=== PATIENT | male | born 1940 | race Caucasian/White ===

== ENCOUNTER → 2017-12-30 10:49 | Outpatient (CLI) | payer MEDICARE, SELFPAY ==
--- NOTE | 2017-12-30 | DI.RAD.S_ITS ---
PROCEDURE: XR CHEST 2V INDICATIONS: ACUTE ON CHRONIC SYSTOLIC CHF TECHNIQUE: 2 views of the chest were acquired. COMPARISON: [facility], , CHEST 2 VIEW, 04/09/2017, 8:46. [facility], , CHEST 2 VIEW, 10/21/2016, 10:46. [facility], , CHEST 1 VIEW, 09/20/2016, 6:47. FINDINGS: Surgical changes and devices: Pacemaking device and dual chamber leads normal. Lungs and pleura: No pleural effusions or pneumothorax. Lungs are abnormal, with a right upper lobe pneumonia pattern. Mediastinum: Mediastinal contours are normal. Heart size is normal. Bones and chest wall: No suspicious bony abnormalities. Soft tissues appear unremarkable. IMPRESSION: Right upper lobe pneumonia, cardiac pacemaking device and dual chamber leads normal. Dictated by: Arjun Fisher M.D. on 12/30/2017 at 11:39 Approved by: Arjun Fisher M.D. on 12/30/2017 at 11:40
[2017-12-30 12:03] LABS: Alanine Aminotransferase 48 IU/L (21-72); Albumin 4.1 g/dL (3.5-5.0); Albumin Globulin Ratio 1.5 (1.0-2.8); Alkaline Phosphatase 59 U/L (38-126); Aspartate Aminotransferase 31 IU/L (17-59); BUN Creatinine Ratio 17.8 (6-22); Bilirubin Total 1.7 mg/dL (0.2-1.3); Creatine Kinase 115 U/L (55-170); Estimated Glomerular Filt Rate > 60.0 mL/min (>60); Globulin 2.8 g/dL (1.7-4.1); Glucose 91 mg/dL (80-110); HEMOLYSIS < 15 (0-50); Magnesium 2.1 mg/dL (1.6-2.3); Sodium 142 mmol/L (137-145); Total Protein 6.9 g/dL (6.3-8.2)
[2017-12-30 12:09] LABS: Add Manual Diff / Slide Review NO; Basophils Percent Auto 0.8 % (0-2); Eosinophils Percent Auto 7.4 % (2-4); Hematocrit 39.6 % (41-53); Hemoglobin 13.7 g/dL (13.5-17.5); Mean Corpuscular HGB Conc 34.6 % (30-36); Mean Corpuscular Volume 92.4 fL (80-100); Monocytes Percent Auto 12.8 % (3-14); Neutrophils Absolute Auto 4900 /uL (3000-5900); Platelet Count 186 X10^3/uL (150-400); Red Blood Cell Count 4.29 X10^6/uL (4.5-5.9); Red Cell Distribution Width 13.9 % (11.6-14.8); White Blood Cell Count 7.3 X10^3/uL (4.5-11.0)
[2017-12-30 12:20] LABS: Troponin I < 0.012 ng/mL (0.01-0.034)
== END ==
PROVIDERS: PCP Family Medicine; Visit Provider Internal Medicine Cardiovascular Disease
DX: I50.23 Acute on chronic systolic (congestive) heart failure (principal); J18.9 Pneumonia, unspecified organism; Z95.0 Presence of cardiac pacemaker
CPT/HCPCS: 36415; 71046; 80053; 82550; 83735; 84484; 85025

== ENCOUNTER → 2017-12-31 09:30 | Outpatient (CLI) | payer MEDICARE, SELFPAY ==
--- NOTE | 2017-12-31 11:54 | DI.ECHO.S_ITS ---
[facility] +---------+ : : [address] : : : [place], [place] : : : : [id number] : : : : Phone: [phone]+ Echocardiogram Report + + :Name: VIVIAN MOSQUEDA Study Date: 12/31/2017 Height: 72 in : :[facility] Exam Location: [facility] Weight: 224 lb : : Gender: Male BSA: 2.2 m2 : :: 1940 Age: 77 yrs BP: 120/80 mmHg: :Reason For Study: Left ventricle dysfunction : :Ordering Physician: Scott : :[place] Performed By: Gabbie Page : + + Interpretation Summary The left ventricle is normal in size. The ejection fraction is estimated to be 60-65%. Compared to the prior exam, the left ventricular function is improved. The right ventricle is mildly dilated. There is a pacemaker lead in the right ventricle. Right ventricular systolic function is mildly reduced. There is mild to moderate mitral regurgitation. Compared to the prior echo study, there has been no change in the severity of mitral regurgitation. The left and non coronary cusps are mildly calcified with mildly reduced mobility. There is mild to moderate aortic regurgitation. Compared to the prior echo study, there has been no change in the severity of aortic regurgitation. The ascending aorta is mildly enlarged. The IVC is dilated (diameter is greater than 2.1 cm) yet it collapses greater than 50% with a sniff. This suggests a right atrial pressure of 8 mm Hg. Procedure: A two-dimensional transthoracic echocardiogram with color flow and Doppler was performed. The study quality was technically adequate. Comparison is made with the echocardiogram of 09/20/16. The patient has a paced rhythm. Left Ventricle: The left ventricle is normal in size. Proximal septal thickening is noted. There is no echo evidence for significant left ventricular outflow tract obstruction. The ejection fraction is estimated to be 60-65%. Compared to the prior exam, the left ventricular function is improved. There is apical septal wall hypokinesis. Compared to the prior exam, the apical wall motion abnormality is improved. E/E' med: 7.1. Right Ventricle: The right ventricle is mildly dilated. There is a pacemaker lead in the right ventricle. Right ventricular systolic function is mildly reduced. TAPSE: 1.5 cm. Atria: The left atrium is severely dilated. The left atrium has remained unchanged in size since the prior echo exam. The right atrium is moderate to severely dilated. The right atrium has remained unchanged in size since the prior echo exam. There is no Doppler evidence for an interatrial shunt. Mitral Valve: The mitral valve leaflets are mildly calcified. There is mild mitral annular calcification. There is mild to moderate mitral regurgitation. Compared to the prior echo study, there has been no change in the severity of mitral regurgitation. Aortic Valve: The aortic valve is trileaflet. The left and non coronary cusps are mildly calcified with mildly reduced mobility. There is no hemodynamically significant valvular aortic stenosis. There is mild to moderate aortic regurgitation. Compared to the prior echo study, there has been no change in the severity of aortic regurgitation. Tricuspid Valve: The tricuspid valve is normal in structure and function. Pulmonary artery pressures cannot be estimated because of the lack of a measurable TR jet velocity. There is trace tricuspid regurgitation. Pulmonic Valve: The pulmonic valve is not well visualized. There is trace pulmonic regurgitation. Great Vessels: The aortic root is normal size. The ascending aorta is mildly enlarged. The aortic arch could not be visualized. The pulmonary artery is not well visualized, but is probably normal size. The IVC is dilated (diameter is greater than 2.1 cm) yet it collapses greater than 50% with a sniff. This suggests a right atrial pressure of 8 mm Hg. Pericardium/ Pleura There is no pericardial effusion. There is no pleural effusion. MMode/2D Measurements & Calculations LVIDd: 4.7 cm LVOT diam: 2.4 cm LVIDs: 3.2 cm Ao root diam: 3.7 cm FS: 32.8 % asc Aorta Diam: 3.6 cm EPSS: 0.30 cm IVSd: 1.1 cm LVPWd: 0.87 cm LV green. diameter/BSA (cm/m^2): 2.1 LV sys. diameter/BSA (cm/m^2): 1.4 LA A2 area: 41.4 cm2 RA long axis: 7.0 cm LA A4 area: 37.6 cm2 RA area: 27.9 cm2 LA length (vol): 7.1 cm RA vol: 94.6 ml LA vol: 186.1 ml RA : 42.3 ml/m2 LA vol index: 83.2 ml/m2 IVC diam: 2.2 cm RVD1 (basal): 4.7 cm TAPSE: 1.5 cm Doppler Measurements & Calculations Ao V2 max: 127.1 cm/sec LVOT Max Lexa: 83.7 cm/sec Ao V2 mean: 97.1 cm/sec LV V1 max P.8 mmHg Ao max P.5 mmHg LV V1 VTI: 16.6 cm Ao mean P.1 mmHg ALNIA(I,D): 3.3 cm2 Ao V2 VTI: 22.6 cm ALINA(V,D): 2.9 cm2 sev ratio: 0.74 ALINA indexed to BSA (cm^2/m^2): 1.5 AI P1/2t: 491.6 msec AI dec slope: 234.8 cm/sec2 MV E max lexa: 60.0 cm/sec PA V2 max: 56.0 cm/sec Med Peak E' Lexa: 8.4 cm/sec PA V2 mean: 38.9 cm/sec E/E' med: 7.1 PA mean P.68 mmHg Lat Peak E' Lexa: 13.2 cm/sec PA Accel Time: 0.05 sec E/E' lat: 4.5 E/e' average: 5.8 MV P1/2t: 46.9 msec MV P1/2t max lexa: 61.4 cm/sec MVA(P1/2t): 4.7 cm2 Reading Physician:PM
== END ==
PROVIDERS: Family Provider Family Medicine; PCP Family Medicine; Visit Provider Internal Medicine Cardiovascular Disease
DX: I51.9 Heart disease, unspecified (principal)
CPT/HCPCS: 93306

== ENCOUNTER → 2018-01-08 07:43 | Outpatient (CLI) | payer MEDICARE, SELFPAY ==
[2018-01-08 08:38] LABS: INR 1.1 (0.9-1.3); Prothrombin Time 11.5 SECONDS (10.1-12.7)
[2018-01-08 08:40] LABS: Platelet Count 248 X10^3/uL (150-400)
== END ==
PROVIDERS: PCP Family Medicine; Visit Provider Anesthesiology Pain Medicine
DX: Z79.01 Long term (current) use of anticoagulants (principal)
CPT/HCPCS: 36415; 85049; 85610

== ENCOUNTER 2018-01-09 08:02 | Outpatient (CLI) | payer MEDICARE, SELFPAY ==
[2018-01-09] VITALS (8 sets, daily range): BP systolic 97–128; BP diastolic 62–81; PULSE 79–82; RESP 15–20; TEMP 35.9–36.4; O2SAT 94–98; BMI 30.1
--- NOTE | 2018-01-09 | DI.CT.S_ITS ---
PROCEDURE: CT LUMBAR SPINE W CON INDICATIONS: MYELOGRAM SPINE LUMBOSACRAL TECHNIQUE: After the intrathecal administration of 15 mL intrathecal contrast, 3 mm thick sections acquired from T12 to the sacrum. Sagittal and coronal reformats were then constructed. For radiation dose reduction, the following was used: automated exposure control. COMPARISON: [facility], , L-SPINE WITHOUT CONTRAST, 09/15/2015, 10:44. FINDINGS: Image quality: Excellent. Bones: Spinal alignment is normal. No spondylolysis or spondylolisthesis. No suspicious bony lesions. No acute fractures. Mild reactive sclerosis at the endplates of L4-5. Soft tissues: No retroperitoneal masses. Visualized aorta demonstrates atheromatous calcifications with normal caliber. The cord terminates at the L1 level. T12-L1: Normal appearance. L1-L2: Mild disc narrowing and annular bulge with mild central canal stenosis. L2-L3: Disc degeneration with broad-based annular bulge/osseous ridge creates mild central canal stenosis, central diameter of the thecal sac at 9.2 mm. L3-L4: Disc degeneration with small central protrusion superimposed on broad-based annular bulge/osseous ridge, bilateral facet arthropathy with ligamentous thickening, creates moderate central canal stenosis, sagittal diameter of the thecal sac at 6.6 mm. There is osseous hypertrophy in the left posterolateral vertebral body, causing mild left foraminal stenosis. L4-L5: Disc degeneration with small right central protrusion superimposed on broad-based annular bulge/osseous ridge and bilateral facet arthropathy with ligamentous thickening. There is mild central canal stenosis, thecal sac at 9.1 mm. L5-S1: Mild disc degeneration and broad based annular bulge. Bilateral facet arthropathy. The disc bulge slightly indents the thecal sac anteriorly with no apparent displacement or deformity of the S1 nerve roots. No apparent foraminal stenosis. Miscellaneous: Nerve roots appear unremarkable throughout. No nerve root clumping to suggest arachnoiditis. IMPRESSION: 1. Multilevel degenerative disc disease and facet arthropathy. 2. Spinal stenosis is moderately severe and most marked at the L3-4 level. Mild central canal stenosis is present at L2-3 and L4-5. 3. Hypertrophic changes appear to cause mild left foraminal stenosis at the L3-4 level. Assessment of foraminal stenosis by MRI imaging is preferred. Dictated by: Frank Moreno M.D. on 01/09/2018 at 10:02 Approved by: Frank Moreno M.D. on 01/09/2018 at 10:24
--- NOTE | 2018-01-09 09:57 | PC.NURSE ---
pt tolerated Lumbosacral CT Myelogram without difficulty and did not receive any sedation. Dr. Moreno performed procedure. Gave report to Juanita in PACU after pt finished with procedure and CT scan post injection. Pt alert and oriented the entire time. and needs were met.
== END 2018-01-09 12:10 ==
PROVIDERS: Family Provider Family Medicine; PCP Family Medicine; Visit Provider Anesthesiology Pain Medicine
DX: M54.16 Radiculopathy, lumbar region (principal); G62.9 Polyneuropathy, unspecified; R53.1 Weakness; G47.01 Insomnia due to medical condition; M79.661 Pain in right lower leg; Z95.0 Presence of cardiac pacemaker; Z87.891 Personal history of nicotine dependence; M48.061 Spinal stenosis, lumbar region without neurogenic claudication; M51.36 Other intervertebral disc degeneration, lumbar region
CPT/HCPCS: 62270; 72132; 76000

== ENCOUNTER → 2018-05-20 08:04 | Outpatient (CLI) | payer MEDICARE, SELFPAY ==
[2018-05-20 08:58] LABS: BUN Creatinine Ratio 14.5 (6-22); Blood Urea Nitrogen 16 mg/dL (9-20); Calcium 9.4 mg/dL (8.4-10.2); Carbon Dioxide 31 mmol/L (22-32); Chloride 105 mmol/L (98-107); Estimated Glomerular Filt Rate > 60.0 mL/min (>60); Glucose 105 mg/dL (80-110); HEMOLYSIS < 15 (0-50); Magnesium 2.3 mg/dL (1.6-2.3); Sodium 143 mmol/L (137-145)
[2018-05-20 09:04] LABS: Potassium 5.8 mmol/L (3.4-5.1)
[2018-05-20 09:27] LABS: Thyroid Stimulating Hormone 3.64 uIU/mL (0.47-4.68)
== END ==
PROVIDERS: Family Provider Family Medicine; PCP Family Medicine; Visit Provider Internal Medicine Cardiovascular Disease
DX: I47.2 Ventricular tachycardia (principal); I48.0 Paroxysmal atrial fibrillation; Z79.899 Other long term (current) drug therapy
CPT/HCPCS: 36415; 80048; 83735; 84443

== ENCOUNTER → 2018-05-21 07:51 | Outpatient (CLI) | payer MEDICARE, SELFPAY ==
[2018-05-21 09:41] LABS: Blood Urea Nitrogen 20 mg/dL (9-20); Carbon Dioxide 29 mmol/L (22-32); Chloride 106 mmol/L (98-107); Estimated Glomerular Filt Rate > 60.0 mL/min (>60); Glucose 109 mg/dL (80-110); HEMOLYSIS 15 (0-50); Potassium 4.1 mmol/L (3.4-5.1); Sodium 145 mmol/L (137-145)
== END ==
PROVIDERS: Family Provider Family Medicine; PCP Family Medicine; Visit Provider Internal Medicine Cardiovascular Disease
DX: E87.5 Hyperkalemia (principal)
CPT/HCPCS: 36415; 80048

== ENCOUNTER → 2018-07-07 13:42 | Outpatient (CLI) | payer MEDICARE, SELFPAY ==
[2018-07-07 14:30] LABS: BUN Creatinine Ratio 16.2 (6-22); Blood Urea Nitrogen 21 mg/dL (9-20); Calcium 9.1 mg/dL (8.4-10.2); Carbon Dioxide 28 mmol/L (22-32); Chloride 100 mmol/L (98-107); Estimated Glomerular Filt Rate 53.4 mL/min (>60); Glucose 80 mg/dL (80-110); HEMOLYSIS < 15 (0-50); Potassium 4.8 mmol/L (3.4-5.1); Sodium 144 mmol/L (137-145)
== END ==
PROVIDERS: Family Provider Family Medicine; PCP Family Medicine; Visit Provider Internal Medicine Cardiovascular Disease
DX: I25.10 Atherosclerotic heart disease of native coronary artery without angina pectoris (principal)
CPT/HCPCS: 36415; 80048

== ENCOUNTER → 2018-07-10 08:22 | Outpatient (CLI) | payer MEDICARE, SELFPAY | PROVIDERS: Family Provider Family Medicine; PCP Family Medicine; Visit Provider Physician Assistant | DX: N39.0 Urinary tract infection, site not specified (principal) | CPT/HCPCS: 87077; 87086; 87186 ==

== ENCOUNTER 2018-08-26 07:57 | Day surgery (SDC) | payer MEDICARE, SELFPAY ==
--- NOTE | 2018-08-25 17:05 | PM.PREOP ---
Pre-operative Note Interval Note History & Physical reviewed/Exam performed by Physician: Yes Changes to H&P: No
--- NOTE | 2018-08-26 07:47 | P.OP_ITS ---
Operative Date/Time/Diagnoses Date of procedure: 08/26/18 Time of procedure: 08:45 Procedure & Clinicians Procedure: Preoperative diagnoses: 1. Left nuclear sclerotic cataract 2. Astigmatism which is to be corrected with a toric intraocular lens implant. 3. Pacemaker Postoperative diagnoses: 1. Cataract removal left eye with phacoemulsification with toric posterior chamber intraocular lens implant placed. Procedure: Phacoemulsification with posterior chamber toric intraocular lens implant. Surgeon: Kathia Sanchez MD Complications: None Specimen: None Implant:[id number] +20.0 [place] 175 Blood loss: None Anesthesia: Retrobulbar with monitored standby Description of procedure: Patient presents with a complaint of decreased vision due to cataract which is affecting activities of daily living. The patient wants surgery to improve vision and astigmatism. The patient was taken to the operating room and proparacaine drops placed. Indelible ink alvarado were placed at the 90 and 180 degree meridian. The patient was placed on the operating room table and given IV sedation. A retrobulbar block insert consisting of 6 cc of 2% xylocaine without epinephrine mixed half and half with 0.5% Marcaine with 1 cc of hyaluronidase added is placed between the medial and lateral 1/3 of the inferior orbital rim. Lid akinesia is obtain with 1% xylocaine with epinephrine infiltrated along the lid margin. The eye is manually massaged for 30 sec, prepped using Betadine solution, and draped in the usual sterile fashion. Temporal approach was made, a 1 mm side-port incision was made 90? from the proposed corneal wound. Phenylephrine 1.5% mixed with 1% xylocaine 0.2 cc was placed into the anterior chamber. Viscoat followed by Leoncio was then placed. A 2.6 mm clear incision with a 2.6 mm blade was placed at the 180 degree meridian. A 360 degree capsulorrhexis style capsulotomy was then performed with a cystitome needle on a Healon. Hydrodelineation and hydrodissection were performed. The phacoemulsification unit is introduced, and sculpting notice used to groove the central lens. It is then removed in chopping mode. Epi nucleus is removed with epinuclear mode and irrigation aspiration was used to remove the peripheral cortex. The posterior capsule is polished. The intraocular lens is selected, inspected, power confirmed, and placed in the posterior chamber at the desired meridian of 175 degrees.. The pupil was not constricted. The wound was stromally hydrated and tested for leaks, there was none and it was left sutureless. Vigamox 0.1 cc was placed into the anterior chamber. Kenalog 0.2 cc was placed in the superior subconjunctival space. A drop of antibiotic and was placed and the eye was patched and shielded. The patient was stable and returned to the recovery room in excellent condition. Dictated by: Kathia Sanchez MD Copy to: [facility]
[2018-08-26] MEDS: PROPARACAINE 0.5% OPHTH SOL 2 DROPS EYE-OP (08:15)
[2018-08-26] MEDS: CATARACT EYE COMPOUND (10 DROPS/SYRINGE) 3 DROPS EYE-OP (08:15)
[2018-08-26 08:16] VITALS: BP 153/79; PULSE 69; RESP 16; TEMP 36.4; O2SAT 94; BMI 30.5
--- NOTE | 2018-08-26 08:58 | SUR.OPER ---
Supine on eye stretcher, head on extension cradle secured with tape. Arms tucked at sides with blanket. Pillow under knees.
[2018-08-26] MEDS: PHENYLEPHRINE/LIDOCAINE VIAL (OR) 0.2 ML EYE-OP (09:00)
[2018-08-26] MEDS: MOXIFLOXACIN OPHTH DROPS 3 ML BOTTLE 2 DROPS INJ (09:01)
[2018-08-26] MEDS: CHONDROIDTIN/SOD HYALURONATE 1.05 ML SYRINGE INTRAOCULA (09:01)
[2018-08-26] MEDS: TRIAMCINOLONE 50 MG/5 ML VIAL INJ (09:01)
[2018-08-26] MEDS: NEOMYCIN/POLY/DEX OPHTH OINT 1 APPLIC EYE-LEFT (09:02)
[2018-08-26] MEDS: BALANCED SALT IRRIG SOLN NO.2 15 ML IRRIG.SOLN IRR (09:02)
[2018-08-26] MEDS: HYALURONATE SODIUM 10 MG/ML SYRINGE INJ (09:02)
[2018-08-26] MEDS: OFLOXACIN 0.3% OPHTH 5 ML 2 DROPS EYE-LEFT (09:03)
[2018-08-26] MEDS: BALANCED SALT IRRIG SOLN NO.2 500 ML, EPINEPHrine 1 MG IRR (09:04)
[2018-08-26] MEDS: LIDOCAINE 1% W/EPI INJ 20 ML INJ (09:05)
[2018-08-26] MEDS: LIDOCAINE 2% 4 ML, BUPIVACAINE 0.5% (PF) 4 ML, HYALURONIDASE 150 UNIT INJ (09:05)
[2018-08-26 09:31] VITALS: BP 133/69; PULSE 67; RESP 15; TEMP 36.6; O2SAT 95
--- NOTE | 2018-08-26 09:37 | SUR.PHASEII ---
Stable Phase 2.
== END 2018-08-26 09:49 | disposition home or self-care (01) ==
LOC: OR 08:05
PROVIDERS: PCP Family Medicine; Visit Provider Ophthalmology
DX: H25.12 Age-related nuclear cataract, left eye (principal); H52.202 Unspecified astigmatism, left eye; Z95.0 Presence of cardiac pacemaker; I95.9 Hypotension, unspecified
CPT/HCPCS: J0171; J2250; J2704; J3010; J3301; J3470; V2787

== ENCOUNTER 2018-09-16 06:54 | Day surgery (SDC) | payer MEDICARE, SELFPAY ==
--- NOTE | 2018-09-13 12:35 | PM.PREOP ---
Pre-operative Note Interval Note History & Physical reviewed/Exam performed by Physician: Yes Changes to H&P: No
--- NOTE | 2018-09-13 12:42 | P.OP_ITS ---
Operative Date/Time/Diagnoses Date of procedure: 09/16/18 Time of procedure: 07:44 Procedure & Clinicians Procedure: Preoperative diagnoses: 1. Right nuclear sclerotic cataract 2. Astigmatism which is to be corrected with a toric intraocular lens implant. 3. Cardiac Pacemaker and stents on chronic anti-coagulation. Postoperative diagnoses: 1. Cataract removal with phacoemulsification with toric posterior chamber intraocular lens implant placed. Procedure: Phacoemulsification with posterior chamber toric intraocular lens implant. Surgeon: Kathia Sanchez MD Complications: None Specimen: None Implant:[id number] Blood loss: None Anesthesia: Retrobulbar with monitored standby Description of procedure: Patient presents with a complaint of decreased vision due to cataract which is affecting activities of daily living. The patient wants surgery to improve vision and astigmatism. He stopped Eliquis 3 days prior and aspirin 7 days prior to surgery. The patient was taken to the operating room and proparacaine drops placed. Indelible ink alvarado were placed at the 90 and 180 degree meridian. The patient was placed on the operating room table and given IV sedation. A retrobulbar block insert consisting of 6 cc of 2% xylocaine without epinephrine mixed half and half with 0.5% Marcaine with 1 cc of hyaluronidase added is placed between the medial and lateral 1/3 of the inferior orbital rim. Lid akinesia is obtain with 1% xylocaine with epinephrine infiltrated along the lid margin. The eye is manually massaged for 30 sec, prepped using Betadine solution, and draped in the usual sterile fashion. Temporal approach was made, a 1 mm side-port incision was made 90? from the proposed corneal wound. Phenylephrine 1.5% mixed with 1% xylocaine 0.2 cc was placed into the anterior chamber. Viscoat followed by Leoncio was then placed. A 2.6 mm clear incision with a 2.6 mm blade was placed at the 170 degree meridian. A 360 degree capsulorrhexis style capsulotomy was then performed with a cystitome needle on a Healon. Hydrodelineation and hydrodissection were performed. The phacoemulsification unit is introduced, and sculpting used to groove the central lens. It is then removed in chopping mode. Epi nucleus is removed with epinuclear mode and irrigation aspiration was used to remove the peripheral cortex. The posterior capsule is polished. The intraocular lens is selected, inspected, power confirmed, and placed in the posterior chamber at the desired meridian of 178 degrees. The pupil was not constricted. The wound was stromally hydrated and tested for leaks, there was none and it was left sutureless. Vigamox 0.1 cc was placed into the anterior chamber. Kenalog 0.2 cc was placed in the superior subconjunctival space. A drop of antibiotic and was placed and the eye was patched and shielded. The patient was stable and returned to the recovery room in excellent condition. Dictated by: Kathia Sanchez MD Copy to: [facility]
[2018-09-16 07:10] VITALS: BP 154/81; PULSE 81; RESP 16; TEMP 36.3; O2SAT 94; BMI 30.1
[2018-09-16] MEDS: PROPARACAINE 0.5% OPHTH SOL 2 DROPS EYE-OP ×2 (07:10→08:13)
[2018-09-16] MEDS: CATARACT EYE COMPOUND (10 DROPS/SYRINGE) 3 DROPS EYE-OP ×3 (07:15→07:25)
[2018-09-16] MEDS: HYALURONATE SODIUM 10 MG/ML SYRINGE INJ (08:11)
[2018-09-16] MEDS: BALANCED SALT IRRIG SOLN NO.2 15 ML IRR (08:11)
[2018-09-16] MEDS: LIDOCAINE 1% W/EPI INJ 20 ML INJ (08:11)
[2018-09-16] MEDS: CHONDROIDTIN/SOD HYALURONATE 1.05 ML SYRINGE INTRAOCULA (08:11)
[2018-09-16] MEDS: MOXIFLOXACIN OPHTH DROPS 3 ML BOTTLE 2 DROPS INJ (08:12)
[2018-09-16] MEDS: NEOMYCIN/POLY/DEX OPHTH OINT 1 APPLIC EYE-RIGHT (08:12)
[2018-09-16] MEDS: TRIAMCINOLONE 50 MG/5 ML VIAL INJ (08:13)
[2018-09-16] MEDS: PHENYLEPHRINE/LIDOCAINE VIAL (OR) 0.2 ML EYE-OP (08:13)
[2018-09-16] MEDS: BALANCED SALT IRRIG SOLN NO.2 500 ML, EPINEPHrine 1 MG IRR (08:14)
[2018-09-16] MEDS: LIDOCAINE 2% 4 ML, BUPIVACAINE 0.5% (PF) 4 ML, HYALURONIDASE 150 UNIT INJ (08:14)
[2018-09-16 08:47] VITALS: BP 140/80; PULSE 79; RESP 12; TEMP 36.5; O2SAT 98
== END 2018-09-16 08:40 | disposition home or self-care (01) ==
LOC: OR 06:56
PROVIDERS: PCP Family Medicine; Visit Provider Ophthalmology
DX: H25.11 Age-related nuclear cataract, right eye (principal); H52.201 Unspecified astigmatism, right eye; Z95.0 Presence of cardiac pacemaker; I10 Essential (primary) hypertension; Z79.01 Long term (current) use of anticoagulants
CPT/HCPCS: J0171; J2250; J2704; J3010; J3301; J3470; V2787

== ENCOUNTER → 2018-10-01 13:39 | Outpatient (CLI) | payer MEDICARE, SELFPAY ==
[2018-10-01 15:27] LABS: Blood Urea Nitrogen 19 mg/dL (9-20); Calcium 9.3 mg/dL (8.4-10.2); Carbon Dioxide 25 mmol/L (22-32); Chloride 103 mmol/L (98-107); Estimated Glomerular Filt Rate > 60.0 mL/min (>60); Glucose 88 mg/dL (80-110); HEMOLYSIS < 15 (0-50); Potassium 4.4 mmol/L (3.4-5.1); Sodium 139 mmol/L (137-145)
== END ==
PROVIDERS: PCP Family Medicine; Visit Provider Internal Medicine Cardiovascular Disease
DX: I48.0 Paroxysmal atrial fibrillation (principal)
CPT/HCPCS: 36415; 80048

== ENCOUNTER → 2019-06-11 14:49 | Outpatient (CLI) | payer MEDICARE, SELFPAY ==
[2019-06-11 16:12] LABS: BUN Creatinine Ratio 18.9 (6-22); Blood Urea Nitrogen 17 mg/dL (9-20); Carbon Dioxide 29 mmol/L (22-32); Chloride 100 mmol/L (98-107); Estimated Glomerular Filt Rate > 60.0 mL/min (>60); Glucose 94 mg/dL (80-110); HEMOLYSIS < 15 (0-50); Potassium 4.1 mmol/L (3.4-5.1); Sodium 139 mmol/L (137-145)
== END ==
PROVIDERS: PCP Family Medicine; Visit Provider Internal Medicine Cardiovascular Disease
DX: I48.0 Paroxysmal atrial fibrillation (principal); I47.2 Ventricular tachycardia; I44.2 Atrioventricular block, complete
CPT/HCPCS: 36415; 80048

== ENCOUNTER 2019-07-13 10:52 | Day surgery (SDC) | payer MEDICARE, SELFPAY ==
[2019-07-08 08:21] VITALS: BMI 30.7
[2019-07-13] VITALS (8 sets, daily range): BP systolic 109–130; BP diastolic 50–69; PULSE 69–70; RESP 10–17; TEMP 36.2–36.9; O2SAT 93–96; BMI 30.7
[2019-07-13] MEDS: LACTATED RINGERS 1,000 ML 100 ML IV (11:06)
--- NOTE | 2019-07-13 12:21 | PM.PREOP ---
Pre-operative Note Interval Note History & Physical reviewed/Exam performed by Physician: Yes Changes to H&P: No
[2019-07-13] MEDS: CLINDAMYCIN 900 MG/50 ML PIGGYBACK 50 MG IV (12:50)
--- NOTE | 2019-07-13 13:08 | SUR.OPER ---
Supine on padded OR bed, head on pillow, arms secured on padded arm boards at <90 degrees abduction, legs uncrossed, safety belt at thigh, tape over blanket over lower legs.
[2019-07-13] MEDS: BUPIVACAINE 0.25% (PF) VIAL 30 ML INJ (13:13)
--- NOTE | 2019-07-13 13:51 | PM.OP.1 ---
Operative Date/Time/Diagnoses Date of procedure: 07/13/19 Time of procedure: 13:51 Pre-op diagnosis: Umbilical hernia Post-op diagnosis: same Procedure & Clinicians Procedure: Open umbilical hernia repair Same procedure as scheduled: Yes Indications: This is a 78-year-old man with a symptomatic reducible umbilical hernia who presents for elective repair Surgeon: Hadley Miranda Anesthesia Type: General Operative Notes Findings: Fat containing umbilical hernia. Fascial defect approximately 1 1/2 cm Specimen(s): none sent Estimated Blood Loss (mL): 5 Procedure in detail: Patient was brought to the operating room placed supine on the table. Bilateral lower extremity compression devices were applied. General anesthesia was induced and they were intubated with an endotracheal tube. They received 2 g of Ancef prior to skin incision. They were prepped and draped in sterile fashion. A time-out was performed ensure the correct patient procedure necessary equipment within the operating room. A curvilinear incision was made inferior to the umbilicus. The subcutaneous tissues were divided. The umbilical hernia was identified and was dissected off the umbilicus and circumferentially. The umbilical hernia sac was opened carefully using Fanta and contained viable omentum. The hernia sac was then closed with 3 0 Vicryl suture. The sac was reduced into the abdomen and the fascia was cleared from above and below circumferentially. The fascial defect was approximately 1.5 cm small enough that I choose to close the defect primarily with 0 PDS suture as oppose to mesh. The subcutaneous tissues were reapproximated using 3 0 Vicryl skin closed with 4 0 Monocryl upon by the application of Dermabond and Steri-Strips. Sponge instrument count at the end of the operation was correct. Patient tolerated procedure well was extubated and transferred to postoperative care unit in stable condition. Post-operative Condition: stable Disposition: same day surgery
[2019-07-13] MEDS: HYDROCODONE/ACET 5/325 TABLET 1 TAB PO (14:40)
== END 2019-07-13 15:00 | disposition home or self-care (01) ==
PROVIDERS: Family Provider Family Medicine; PCP Family Medicine; Visit Provider Surgery
PROC: (CPT 49585; principal; 2019-07-13 12:15)
DX: K42.9 Umbilical hernia without obstruction or gangrene (principal); I48.91 Unspecified atrial fibrillation; Z79.01 Long term (current) use of anticoagulants; Z95.0 Presence of cardiac pacemaker; I25.10 Atherosclerotic heart disease of native coronary artery without angina pectoris; Z86.718 Personal history of other venous thrombosis and embolism
CPT/HCPCS: 49585; J2250; J2405; J2704; J3010

== ENCOUNTER 2019-10-22 08:39 | Emergency (ER) | payer MEDICARE, SELFPAY ==
[2019-10-22 08:54] VITALS: BP 155/72; PULSE 67; RESP 18; TEMP 36.4; O2SAT 98; BMI 30.6
--- NOTE | 2019-10-22 08:56 | ED_ITS ---
HPI - Abdominal Pain General Chief Complaint: Abdominal Pain Stated Complaint: lower left abdominal pain Time Seen by Provider: 10/22/19 08:56 History of Present Illness HPI narrative: 79-year-old gentleman with a history of anticoagulation for paroxysmal AFib with pacemaker in place, ASCVD with 2 stents, and hypertension presents with 4 days of left lower quadrant abdominal pain. He initially attributed the pain to the musculoskeletal findings after bending lifting and twisting moving some bird seed bags around. However the pain has persisted it is worse with getting up from a laying to a standing position, with walking and minimally noticeable when he is lying flat with no movement. His last bowel movement was yesterday and normal. He is not have any difficulty with voiding nor dysuria. Pain does not radiate into the flank or into the groin or testicles. He denies fever, chest pain, diarrhea, nausea, vomiting. Related Data Home Medications Medication Instructions Recorded Confirmed aspirin 81 mg PO DAILY #0 11/18/11 08/04/19 atorvastatin [Lipitor] 40 mg PO BEDTIME #0 11/18/11 10/22/19 furosemide 20 mg PO DAILY #0 09/04/16 10/22/19 dofetilide 250 mcg capsule 750 mcg PO Q12H 02/05/18 08/04/19 metoprolol succinate 25 mg 25 mg PO QPM 02/05/18 10/22/19 tablet,extended release 24 hr apixaban 5 mg tablet 5 mg PO BID #0 tab 11/30/18 10/22/19 losartan 25 mg tablet 25 mg PO DAILY tab 09/15/19 10/22/19 mupirocin TOPICAL 10/22/19 Previous Rx's Medication Instructions Recorded metronidazole 500 mg PO TID #30 tab 10/22/19 metronidazole [Flagyl] 500 mg PO TID #30 tab 10/22/19 sulfamethoxazole-trimethoprim 1 tab PO BID #20 tab 10/22/19 [Bactrim DS] Allergies Allergy/AdvReac Type Severity Reaction Status Date / Time Penicillins [PENICILLINS] Allergy Severe hives Verified 09/15/19 09:35 erythromycin base Allergy Mild nausea Verified 09/15/19 09:35 [From ERYTHROCIN] (unbuffered) Review of Systems Review of Systems Narrative: Baseline exertional dyspnea unchanged. Remainder of review of systems is otherwise unremarkable Patient History Medical History Abnormal CXR (chest x-ray) (Resolved 1997) Atrial fibrillation (Chronic) Atrial fibrillation (Chronic 2009) CAD (coronary artery disease) (Chronic 1999) Cervical radiculopathy (Chronic) Chicken pox (Resolved ~1949) Diverticular disease (Chronic 2014) DVT (deep venous thrombosis) (Resolved 1987) Dysphonia (Chronic 01/05/18) Fibula fracture (Resolved 1979) History of basal cell carcinoma (BCC) of skin (Resolved) Hydrocele (Chronic 2015) Lumbar radiculopathy (Chronic) Mumps (Resolved ~1949) Myocardial infarction (Acute ~1999) Pharyngoesophageal dysphagia (Chronic 2015) Presence of cardiac pacemaker (Chronic 02/08/16) Rosacea (Chronic ~1979) Shoulder pain (Chronic 1989) Tinnitus (Chronic 1994) Tuberculosis (Resolved) Umbilical hernia (Acute) 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) Surgical History Anesthesia (Resolved) History of colonoscopy (Resolved 05/25/14) History of left heart catheterization (Resolved 05/2016) History of right inguinal hernia repair (Resolved 02/16/09) History of tonsillectomy (Resolved 1943) Hx of bilateral cataract extraction (Acute 2018) Hx of laminectomy (Acute ~10/2018) Status post ablation of atrial fibrillation (Resolved 09/18/16) Status post ablation of atrial flutter (Resolved 11/2010) Status post arthroscopy (Resolved ~2005) Status post arthroscopy (Resolved 1987) Status post biopsy (Resolved 08/15/15) Status post biventricular pacemaker (Resolved 07/01/17) Status post epidural steroid injection (Resolved) Stented coronary artery (Chronic 1999) Family History Brother Cancer Bladder cancer Hodgkin's lymphoma Father Pulmonary embolism Mother Cancer Non-Hodgkin's lymphoma Social History marital status: household members: spouse lives independently: Yes caregiver/support person: No housing: house occupational status: previously employed Smoking Status: Former smoker second hand exposure: No alcohol intake: current substance use type: does not use Smoking Status: Former smoker alcohol intake frequency: 0-2 drinks per day Substance Use Type: does not use Exam Narrative Exam Narrative: General: Healthy appearing, in no acute distress. Able to give a complete and coherent history. Well-nourished well-developed HEENT: Moist mucous membranes, normal sclera with reactive pupils, Neck: No JVD, supple Respiratory: Lungs are clear to auscultation, no wheezing no rales no rhonchi. Full and symmetrical air movement Cardiac: Regular rate and rhythm no murmurs no bruits Abdomen: Soft, moderately tender in the left lower quadrant without rebound or guarding, good bowel tones, no flank pain Skin: Warm and dry, no rashes Neurologic: Grossly neurologically intact with no obvious asymmetries or abnormalities Extremities: No trauma, well perfused, 1+ lower extremity edema bilateral with compression socks in place Psych: Cooperative, appropriate insight and affect Initial Vital Signs Initial Vital Signs: Vital Signs Temperature 97.6 F 10/22/19 08:54 Pulse Rate 67 10/22/19 08:54 Respiratory Rate 18 10/22/19 08:54 Blood Pressure 155/72 H 10/22/19 08:54 Pulse Oximetry 98 10/22/19 08:54 Course Orders Ordered: ED Orders 10/22/19 08:41 EKG-12 Lead Stat 10/22/19 09:20 Complete Blood Count AUTO DIFF Stat Comprehensive Metabolic Panel Stat Lipase Stat Partial Thromboplastin Time Stat Prothrombin Time INR Stat 10/22/19 10:32 CT abdomen pelvis w con Stat Vital Signs Vital signs: Vital Signs - 8 hr 10/22/19 08:54 Temperature 97.6 F Pulse Rate 67 Respiratory Rate 18 Blood Pressure 155/72 H Pulse Oximetry 98 MDM - Abdominal Pain Medical Records Attestation: I reviewed the patient's medical records. Lab Data Attestation: I reviewed the patient's lab results. Result diagrams: 10/22/19 09:20 10/22/19 09:20 Labs: Lab Results 10/22/19 10/22/19 10/22/19 Range/Units 09:20 09:20 09:20 WBC 5.9 (4.5-11.0) X10^3/uL RBC 4.44 L (4.5-5.9) X10^6/uL Hgb 14.0 (13.5-17.5) g/dL Hct 40.9 L (41-53) % MCV 92.0 (80-100) fL MCH 31.5 (26-34) PG MCHC 34.3 (30-36) % RDW 14.0 (11.6-14.8) % Plt Count 205 (150-400) X10^3/uL Neut % (Auto) 70.1 (50-75) % Lymph % (Auto) 11.9 L (25-40) % Terrell % (Auto) 11.2 (3-14) % Eos % (Auto) 5.8 H (2-4) % Baso % (Auto) 1.0 (0-2) % Neut # (Auto) 4200 (1533-0448) /uL Lymph # (Auto) 700 L (7997-6183) /uL Terrell # (Auto) 700 (0-900) /uL Eos # (Auto) 300 (0-450) /uL Baso # (Auto) 100 (0-100) /uL PT 16.8 H (10.1-12.7) SECONDS INR 1.5 H (0.9-1.3) APTT 44 H (26.4-36.2) SECONDS Sodium 139 (137-145) mmol/L Potassium 4.0 (3.4-5.1) mmol/L Chloride 105 (98-107) mmol/L Carbon Dioxide 26 (22-32) mmol/L BUN 19 (9-20) mg/dL Creatinine 1.00 (0.66-1.25) mg/dL Estimated GFR > 60.0 (>60) mL/min BUN/Creatinine Ratio 19.0 (6-22) Glucose 105 (80-110) mg/dL Calcium 9.3 (8.4-10.2) mg/dL Total Bilirubin 1.1 (0.2-1.3) mg/dL AST 34 (17-59) IU/L ALT 21 (<50) IU/L Alkaline Phosphatase 82 (38-126) U/L Total Protein 7.2 (6.3-8.2) g/dL Albumin 4.4 (3.5-5.0) g/dL Globulin 2.8 (1.7-4.1) g/dL Albumin/Globulin Ratio 1.6 (1.0-2.8) Lipase 71 (23-300) U/L Point of care testing: Urine Dip Bedside Urine Glucose Negative Bedside Urine Bilirubin - Negative Bedside Urine Ketone - Negative Urine Specific Mclaughlin 1.010 Bedside Urine Occult Blood - Negative Bedside Urine pH 6.0 Bedside Urine Protein - Negative Bedside Urine Urobilinogen - Negative Bedside Urine Nitrite - Negative Bedside Urine Leukocytes - Negative Esterase Imaging Data CT scan - abdomen/pelvis: Radiologist's Impression: IMPRESSION: 1. Descending colonic diverticulitis with minimal adjacent reactive free fluid. No abscess or bowel obstruction. 2. Probable constipation. 3. Numerous hepatic cysts have slightly increased in size and number. 4. Normal appendix. 5. Prominent distention of the urinary bladder. Please correlate clinically to exclude the possibility of a bladder outlet obstruction. (Please note that the prostate appears to be normal in size on this study). Dictated by: Rivas Zuleta M.D. on 10/22/2019 at 9:38 ECG Data Attestation: I personally reviewed and interpreted this ECG as follows: Interpretation: AV paced rhythm. MDM Narrative Medical decision making narrative: Exam findings and CT Ca scan are consistent with developing diverticulitis without complication. He is able to eat and drink and is safe for home discharge. Will treat with Bactrim Flagyl and MiraLax to encourage soft stools and full bowel emptying Cipro and Levaquin are contraindicated with his dofetilide and he is allergic to penicillin so Aug mentin is no longer an option either. Bactrim is the 4th choice and may interact with dofetilide this is reviewed with the patient. Discharge Plan Departure Patient Disposition: Home Clinical Impression: Diverticulitis Instructions: DI for Diverticulitis Activity Restrictions/Additional Instructions: Thank you for coming in today. Your exam, labs and a CT scan all suggestive developing diverticulitis. Fortunately there is no abscess and no significant findings that would require a hospital stay or IV antibiotics at this time. I am going to recommend that you take 10 days of Septra and 10 days of Flagyl/metronidazole. The Flagyl will cause significant flushing and nausea if you have any alcohol (sometimes even including mouthwash) so please keep this in mind for the next few days. Keeping your stool on the very soft side will help with some of the pain and prevent further issues. To that end I would recommend as much fiber as you are interested in eating and adding a full cap full of MiraLax in a glass of water daily. MiraLax simply pulls extra water into your stool to keep it soft. It is available [id number] and you can buy the generic version I hope you heal quickly. It was ansley to see you both again Prescriptions: New metronidazole 500 mg tablet 500 mg PO TID Qty: 30 RF: 0 sulfamethoxazole-trimethoprim [Bactrim DS] 800-160 mg tablet 1 tab PO BID Qty: 20 RF: 0 metronidazole [Flagyl] 500 mg tablet 500 mg PO TID Qty: 30 RF: 0 No Action losartan 25 mg tablet 25 mg PO DAILY RF: 0 atorvastatin [Lipitor] 40 MG tablet 40 mg PO BEDTIME Qty: 0 RF: 0 aspirin 81 mg Tablet,Delayed Release (Dr/Ec) 81 mg PO DAILY Qty: 0 RF: 0 furosemide 20 MG tablet 20 mg PO DAILY Qty: 0 RF: 0 Eliquis 5 mg tablet 5 mg PO BID Qty: 0 RF: 0 metoprolol succinate 25 mg tablet extended release 24 hr 25 mg PO QPM RF: 0 dofetilide 250 mcg capsule 750 mcg PO Q12H RF: 0 mupirocin 2 % ointment TOPICAL RF: 0 Referrals: Bruna Mckinley MD [Primary Care Provider] -
[2019-10-22 09:31] LABS: Add Manual Diff / Slide Review NO; Basophils Absolute Auto 100 /uL (0-100); Eosinophils Absolute Auto 300 /uL (0-450); Eosinophils Percent Auto 5.8 % (2-4); Hematocrit 40.9 % (41-53); Lymphocytes Absolute Auto 700 /uL (1100-4500); Lymphocytes Percent Auto 11.9 % (25-40); Mean Corpuscular HGB Conc 34.3 % (30-36); Mean Corpuscular Hemoglobin 31.5 PG (26-34); Monocytes Absolute Auto 700 /uL (0-900); Monocytes Percent Auto 11.2 % (3-14); Neutrophils Absolute Auto 4200 /uL (1500-7000); Neutrophils Percent Auto 70.1 % (50-75); Platelet Count 205 X10^3/uL (150-400); Red Blood Cell Count 4.44 X10^6/uL (4.5-5.9); White Blood Cell Count 5.9 X10^3/uL (4.5-11.0)
[2019-10-22 09:41] LABS: INR 1.5 (0.9-1.3); Prothrombin Time 16.8 SECONDS (10.1-12.7)
[2019-10-22 09:43] LABS: PTT Partial Thromboplastin Tim 44 SECONDS (26.4-36.2)
[2019-10-22 09:46] LABS: Alanine Aminotransferase 21 IU/L (<50); Albumin 4.4 g/dL (3.5-5.0); Albumin Globulin Ratio 1.6 (1.0-2.8); Alkaline Phosphatase 82 U/L (38-126); Aspartate Aminotransferase 34 IU/L (17-59); Bilirubin Total 1.1 mg/dL (0.2-1.3); Blood Urea Nitrogen 19 mg/dL (9-20); Calcium 9.3 mg/dL (8.4-10.2); Carbon Dioxide 26 mmol/L (22-32); Chloride 105 mmol/L (98-107); Estimated Glomerular Filt Rate > 60.0 mL/min (>60); Globulin 2.8 g/dL (1.7-4.1); Glucose 105 mg/dL (80-110); HEMOLYSIS < 15 (0-50); Lipase 71 U/L (23-300); Sodium 139 mmol/L (137-145); Total Protein 7.2 g/dL (6.3-8.2)
--- NOTE | 2019-10-22 10:32 | DI.CT.S_ITS ---
PROCEDURE: CT ABDOMEN PELVIS W CON INDICATIONS: LLQ abd pain for 4 days TECHNIQUE: After the administration of oral and intravenous contrast, 5 mm thick sections acquired from the diaphragms to the symphysis. 5 mm thick coronal and sagittal reformats were performed. For radiation dose reduction, the following was used: automated exposure control, adjustment of mA and/or kV according to patient size. COMPARISON: [facility], CT, ABDOMEN/PELVIS WITH CONTRAST, 11/02/2014, 11:08. [facility], CT, ABDOMEN/PELVIS WITH CONTRAST, 01/12/2009, 10:40. FINDINGS: Image quality: Diagnostic. ABDOMEN: Lung bases: Minimal atelectasis is present within the bilateral lung bases. The cardiac pacer is present. Heart size is normal. Solid organs: Numerous low attenuation lesions are identified scattered throughout the liver, which have slightly increased in size and number since the previous study. No intrahepatic or extrahepatic biliary dilatation is identified. The pancreas is unremarkable. The spleen and adrenals are within normal limits. Peritoneum and bowel: The stomach is unremarkable. The small bowel loops are nondilated. The appendix is well-visualized and normal. There is a large amount of residual stool identified throughout the colon. Extensive colonic diverticulosis is evident. There is moderate inflammation involving the mesentery surrounding the descending colon with a trace amount of fluid present within the left paracolic gutter. No loculated fluid collections or free air is evident. Nodes and vessels: No retroperitoneal or mesenteric adenopathy. Aorta and inferior vena cava are normal in caliber. There is prominent aortic atherosclerosis. 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 Bones: No acute fracture or suspicious osseous lesion is identified. Severe degenerative changes of the lumbar spine are noted. PELVIS: Genitourinary: Bladder wall thickness is normal. However, the urinary bladder is prominently distended. The prostate does not appear to be significantly enlarged. Miscellaneous: There may be a small fat containing bilateral inguinal hernias. No free fluid or loculated fluid collection is identified. There is no free air. No pelvic lymphadenopathy is identified. Bones: No suspicious bony lesions. No acute pelvic fractures are identified. Age-appropriate degenerative changes of the pelvic joints are noted. IMPRESSION: 1. Descending colonic diverticulitis with minimal adjacent reactive free fluid. No abscess or bowel obstruction. 2. Probable constipation. 3. Numerous hepatic cysts have slightly increased in size and number. 4. Normal appendix. 5. Prominent distention of the urinary bladder. Please correlate clinically to exclude the possibility of a bladder outlet obstruction. (Please note that the prostate appears to be normal in size on this study). Dictated by: Rivas Zuleta M.D. on 10/22/2019 at 9:38 Approved by: Rivas Zuleta M.D. on 10/22/2019 at 9:42
[2019-10-22 11:59] VITALS: BP 157/75; PULSE 70; RESP 14; O2SAT 96
== END 2019-10-22 12:00 | disposition home or self-care (01) ==
PROVIDERS: Emergency Provider Emergency Medicine; Family Provider Family Medicine; PCP Family Medicine
DX: K57.92 Diverticulitis of intestine, part unspecified, without perforation or abscess without bleeding (principal); R10.32 Left lower quadrant pain; I48.0 Paroxysmal atrial fibrillation; Z79.01 Long term (current) use of anticoagulants; Z95.0 Presence of cardiac pacemaker; I10 Essential (primary) hypertension
CPT/HCPCS: 36415; 74177; 80053; 81003; 83690; 85025; 85610; 85730; 93005; 93010; 99284; Q9967

== ENCOUNTER 2019-11-25 08:50 | Emergency (ER) | payer MEDICARE, SELFPAY ==
[2019-11-25 08:41] VITALS: BP 134/66; PULSE 69; RESP 14; TEMP 36.4; O2SAT 99; BMI 29.0
--- NOTE | 2019-11-25 08:46 | DI.RAD.S_ITS ---
PROCEDURE: XR CHEST 1V INDICATIONS: syncope TECHNIQUE: One view of the chest was acquired. COMPARISON: [facility], CT, PE STUDY (CTA CHEST), 09/20/2016, 7:57. [facility], CR, XR CHEST 2V, 12/30/2017, 10:43. FINDINGS: Surgical changes and devices: Pacemaker Lungs and pleura: Lungs are clear. No pleural effusions or pneumothorax. Mediastinum: Mediastinal contours appear normal. Heart size is normal. Bones and chest wall: No suspicious bony lesions. Overlying soft tissues appear unremarkable. IMPRESSION: No evidence acute pulmonary process. Dictated by: Ramsey Kuo M.D. on 11/25/2019 at 9:16 Approved by: Ramsey Kuo M.D. on 11/25/2019 at 9:17
--- NOTE | 2019-11-25 08:47 | DI.CT.S_ITS ---
PROCEDURE: CT HEAD/BRAIN WO CON INDICATIONS: syncope wiht head trauma on eliquis TECHNIQUE: Noncontrast 4.5 mm thick angled axial sections acquired from the foramen magnum to the vertex, with coronal and sagittal reformats. For radiation dose reduction, the following was used: automated exposure control, adjustment of mA and/or kV according to patient size. COMPARISON: None. FINDINGS: Image quality: Excellent. CSF spaces: Basal cisterns are patent. No extra-axial fluid collections. The ventricles are symmetric in size and shape. Brain: No intracranial bleeds or masses. There is cerebral volume loss for age, with resultant ventricular and sulcal prominence. There are periventricular and deep white matter chronic small vessel ischemic changes. There is intracranial internal carotid artery atherosclerosis. Skull and face: Calvarium and visualized facial bones appear intact, without suspicious lesions. Sinuses: Visualized sinuses and mastoids are clear. IMPRESSION: No acute process. Dictated by: Charito Bragg M.D. on 11/25/2019 at 9:13 Approved by: Charito Bragg M.D. on 11/25/2019 at 9:15
--- NOTE | 2019-11-25 08:59 | ED.GENADULT ---
HPI - General Adult General Chief complaint: Syncope Stated complaint: syncope Time Seen by Provider: 11/25/19 09:05 Source: patient and EMS Mode of arrival: EMS Limitations: no limitations History of Present Illness HPI narrative: 79-year-old gentleman with a history of atrial fibrillation, anticoagulation and pacemaker with heart failure presents after a witnessed syncopal episode in his bathroom at home. Apparently his saw him fall reported him as unresponsive and called 911. There is a contusion to his head with some minor head bleeding. He is altered and confused but breathing comfortably with no signs of acute neuro deficit aside from the altered mental status Related Data Home Medications Medication Instructions Recorded Confirmed aspirin 81 mg PO DAILY #0 11/18/11 08/04/19 atorvastatin [Lipitor] 40 mg PO BEDTIME #0 11/18/11 10/22/19 furosemide 20 mg PO DAILY #0 09/04/16 10/22/19 dofetilide 250 mcg capsule 750 mcg PO Q12H 02/05/18 08/04/19 metoprolol succinate 25 mg 25 mg PO QPM 02/05/18 10/22/19 tablet,extended release 24 hr apixaban 5 mg tablet 5 mg PO BID #0 tab 11/30/18 10/22/19 losartan 25 mg tablet 25 mg PO DAILY tab 09/15/19 10/22/19 mupirocin TOPICAL 10/22/19 Previous Rx's Medication Instructions Recorded metronidazole 500 mg PO TID #30 tab 10/22/19 metronidazole [Flagyl] 500 mg PO TID #30 tab 10/22/19 sulfamethoxazole-trimethoprim 1 tab PO BID #20 tab 10/22/19 [Bactrim DS] Allergies Allergy/AdvReac Type Severity Reaction Status Date / Time Penicillins [PENICILLINS] Allergy Severe hives Verified 09/15/19 09:35 erythromycin base Allergy Mild nausea Verified 09/15/19 09:35 [From ERYTHROCIN] (unbuffered) Review of Systems Review of Systems ROS Unobtainable: Unobtainable due to mental status/LOC Patient History Social History marital status: household members: spouse lives independently: Yes caregiver/support person: No housing: house occupational status: previously employed Smoking Status: Never smoker second hand exposure: No alcohol intake: current substance use type: does not use Smoking Status: Never smoker alcohol intake frequency: 0-2 drinks per day Substance Use Type: does not use Exam Narrative Exam Narrative: General: Healthy appearing, in no acute distress. Unable to recall events, not oriented beyond his name Well-nourished well-developed HEENT: Moist mucous membranes, normal sclera with reactive pupils. Contusion to the occiput of his head and some more blood to the left mu-ism area that will need to be cleaned and fully evaluated Neck: No JVD, supple, no point tenderness along cervical spine or occipital insertions, no paraspinous spasm or trapezius tenderness Respiratory: Lungs are clear to auscultation, no wheezing no rales no rhonchi. Full and symmetrical air movement Cardiac: Regular rate and rhythm no murmurs no bruits Abdomen: Soft nontender good bowel tones, no flank pain Skin: Warm and dry, no rashes Neurologic: Grossly neurologically intact with no obvious asymmetries or abnormalities, not hyper reflexive, significantly confused Extremities: No trauma, well perfused Psych: Cooperative, appropriate insight and affect Initial Vital Signs Initial Vital Signs: Vital Signs Temperature 97.6 F 11/25/19 08:41 Pulse Rate 69 11/25/19 08:41 Respiratory Rate 14 11/25/19 08:41 Blood Pressure 134/66 11/25/19 08:41 Pulse Oximetry 99 11/25/19 08:41 Course Orders Ordered: ED Orders 11/25/19 08:46 XR chest 1V Stat EKG-12 Lead Stat 11/25/19 08:47 CT head/brain wo con Stat 11/25/19 09:35 Complete Blood Count AUTO DIFF Stat Comprehensive Metabolic Panel Stat Ethanol (ETOH) Stat Troponin & CK Cardiac Panel Stat Discontinued Medications Sodium Chloride (Normal Saline 0.9%) 1,000 mls @ 150 mls/hr IV CONT JEN Last Infusion: 11/25/19 11:46 Dose: 0 mls/hr Documented by: Infusion: 11/25/19 10:57 Dose: 999 mls/hr Documented by: Admin: 11/25/19 09:18 Dose: 150 mls/hr Documented by: GEOFF Vital Signs Vital signs: Vital Signs - 8 hr 11/25/19 09:15 11/25/19 10:38 11/25/19 10:55 Pulse Rate 75 69 Respiratory Rate 13 16 Blood Pressure [Right Arm] 123/70 112/61 105/56 L Pulse Oximetry 98 98 11/25/19 11:27 11/25/19 12:05 Pulse Rate 76 75 Respiratory Rate 11 L 14 Blood Pressure [Right Arm] 115/66 Pulse Oximetry 96 97 Medical Decision Making Medical Records Medical records reviewed: Yes I reviewed the patient's medical records. Lab Data Lab results reviewed: Yes I reviewed the patient's lab results. Lab results narrative: An alcohol level of 220 at 9am may provide an explanation for the syncopal episode and altered mental status he is currently demonstrating. Result diagrams: 11/25/19 09:35 11/25/19 09:35 Labs: Lab Results 11/25/19 11/25/19 11/25/19 Range/Units 09:35 09:35 09:35 WBC 4.5 (4.5-11.0) X10^3/uL RBC 4.36 L (4.5-5.9) X10^6/uL Hgb 13.7 (13.5-17.5) g/dL Hct 40.8 L (41-53) % MCV 93.6 (80-100) fL MCH 31.4 (26-34) PG MCHC 33.5 (30-36) % RDW 14.9 H (11.6-14.8) % Plt Count 155 (150-400) X10^3/uL Neut % (Auto) 61.2 (50-75) % Lymph % (Auto) 25.4 (25-40) % [place] % (Auto) 11.9 (3-14) % Eos % (Auto) 0.0 L (2-4) % Baso % (Auto) 1.5 (0-2) % Neut # (Auto) 2700 (0148-7151) /uL Lymph # (Auto) 1100 (4224-5841) /uL [place] # (Auto) 500 (0-900) /uL Eos # (Auto) 0 (0-450) /uL Baso # (Auto) 100 (0-100) /uL Sodium 141 (137-145) mmol/L Potassium 3.9 (3.4-5.1) mmol/L Chloride 108 H (98-107) mmol/L Carbon Dioxide 19 L (22-32) mmol/L BUN 11 (9-20) mg/dL Creatinine 0.80 (0.66-1.25) mg/dL Estimated GFR > 60.0 (>60) mL/min BUN/Creatinine Ratio 13.8 (6-22) Glucose 106 (80-110) mg/dL Calcium 9.0 (8.4-10.2) mg/dL Total Bilirubin 0.7 (0.2-1.3) mg/dL AST 39 (17-59) IU/L ALT 25 (<50) IU/L Alkaline Phosphatase 63 (38-126) U/L Total Creatine Kinase 130 (55-170) U/L CK-MB (CK-2) 1.30 (<2.37) ng/mL CK-MB (CK-2) Rel Index 1.0 L (1.5-5.0) % Troponin I < 0.012 (0.01-0.034) ng/mL Total Protein 7.2 (6.3-8.2) g/dL Albumin 4.2 (3.5-5.0) g/dL Globulin 3.0 (1.7-4.1) g/dL Albumin/Globulin Ratio 1.4 (1.0-2.8) Ethyl Alcohol 228 H ( - 10) mg/dL Point of Care Testing Glucose POC 102 Urine Dip Bedside Urine Glucose Negative Bedside Urine Bilirubin - Negative Bedside Urine Ketone - Negative Urine Specific [place] 1.010 Bedside Urine Occult Blood - Negative Bedside Urine pH 6 Bedside Urine Protein - Negative Bedside Urine Urobilinogen - Negative Bedside Urine Nitrite - Negative Bedside Urine Leukocytes - Negative Esterase Point of care testing: Point of Care Testing Glucose POC 102 Urine Dip Bedside Urine Glucose Negative Bedside Urine Bilirubin - Negative Bedside Urine Ketone - Negative Urine Specific [place] 1.010 Bedside Urine Occult Blood - Negative Bedside Urine pH 6 Bedside Urine Protein - Negative Bedside Urine Urobilinogen - Negative Bedside Urine Nitrite - Negative Bedside Urine Leukocytes - Negative Esterase Imaging Data CT scan - head: Radiologist's Impression: IMPRESSION: No acute process. Dictated by: Charito Bragg M.D. on 11/25/2019 at 9:13 ECG Data Attestation: I personally reviewed and interpreted this ECG as follows: Interpretation: Rate of 69 AV paced Pacemaker model: [place] Pacemaker function: normal pacer function (No abnormal rhythms today to explain a syncopal episode) MDM Narrative Medical decision making narrative: 79-year-old gentleman with a history of atrial fibrillation and a pacemaker on Eliquis presents after a syncopal episode this morning. Significantly altered mental status that is clearing nicely. His alcohol level was 220 and he did in fact appear quite intoxicated. He states he was drinking last night and this is unusual for him. I suspect that the alcohol contributed to the syncopal episode. At this time there is no evidence of cardiac arrhythmia based on pacemaker interrogation, no infection, no intracranial hemorrhage or evidence of stroke, and no evidence of acute coronary syndrome or cardiac events. He is mildly orthostatic by blood pressure(he is fully paced so heart rate is not helpful). He is given a L of fluid. The a contusion to the scalp does not need any suturing. He is safe for home discharge we did discuss my recommendation to avoid alcohol altogether which he completely agreed. Discharge Plan Departure Patient Disposition: Home Clinical Impression: Syncope, vasovagal Acute alcohol intoxication Qualifiers: Complication of substance-induced condition: uncomplicated Qualified Code(s): F10.920 - Alcohol use, unspecified with intoxication, uncomplicated Fall Qualifiers: Encounter type: initial encounter Qualified Code(s): W19.XXXA - Unspecified fall, initial encounter Concussion Qualifiers: Encounter type: initial encounter Loss of consciousness presence/duration: with LOC of 30 min or less Qualified Code(s): S06.0X1A - Concussion with loss of consciousness of 30 minutes or less, initial encounter Contusion of scalp Qualifiers: Encounter type: initial encounter Qualified Code(s): S00.03XA - Contusion of scalp, initial encounter Discharge Date/Time: 11/25/19 12:08 Instructions: DI for Syncope in Adults (Fainting) Activity Restrictions/Additional Instructions: Thank you for coming in today Your workup revealed no evidence of a heart attack, significant cardiac arrhythmia, a stroke, bleeding inside her head after your fall or significant infection. Your alcohol level was 220 (80 is the legal limit for driving). I suspect that mild dehydration associated with drinking last night and still being a bit intoxicated this morning all contributed to your syncopal episode. You were quite fortunate today. Falls while on Eliquis can be devastating. I would recommend that you avoid alcohol completely. At this time, the risks are just not worth the benefits I wish you the best Prescriptions: No Action losartan 25 mg tablet 25 mg PO DAILY RF: 0 atorvastatin [Lipitor] 40 MG tablet 40 mg PO BEDTIME Qty: 0 RF: 0 aspirin 81 mg Tablet,Delayed Release (Dr/Ec) 81 mg PO DAILY Qty: 0 RF: 0 furosemide 20 MG tablet 20 mg PO DAILY Qty: 0 RF: 0 Eliquis 5 mg tablet 5 mg PO BID Qty: 0 RF: 0 metoprolol succinate 25 mg tablet extended release 24 hr 25 mg PO QPM RF: 0 dofetilide 250 mcg capsule 750 mcg PO Q12H RF: 0 mupirocin 2 % ointment TOPICAL RF: 0 metronidazole 500 mg tablet 500 mg PO TID Qty: 30 RF: 0 sulfamethoxazole-trimethoprim [Bactrim DS] 800-160 mg tablet 1 tab PO BID Qty: 20 RF: 0 metronidazole [Flagyl] 500 mg tablet 500 mg PO TID Qty: 30 RF: 0 Referrals: Bruna Mckinley MD [Primary Care Provider] -
[2019-11-25 09:15] VITALS: BP 123/70; PULSE 75; RESP 13; O2SAT 98
[2019-11-25] MEDS: SODIUM CHLORIDE 0.9% 1,000 ML 150 ML IV (09:18)
[2019-11-25 09:44] LABS: Add Manual Diff / Slide Review NO; Basophils Absolute Auto 100 /uL (0-100); Basophils Percent Auto 1.5 % (0-2); Eosinophils Absolute Auto 0 /uL (0-450); Hematocrit 40.8 % (41-53); Hemoglobin 13.7 g/dL (13.5-17.5); Lymphocytes Absolute Auto 1100 /uL (1100-4500); Lymphocytes Percent Auto 25.4 % (25-40); Mean Corpuscular HGB Conc 33.5 % (30-36); Mean Corpuscular Hemoglobin 31.4 PG (26-34); Mean Corpuscular Volume 93.6 fL (80-100); Monocytes Absolute Auto 500 /uL (0-900); Monocytes Percent Auto 11.9 % (3-14); Neutrophils Absolute Auto 2700 /uL (1500-7000); Neutrophils Percent Auto 61.2 % (50-75); Platelet Count 155 X10^3/uL (150-400); Red Blood Cell Count 4.36 X10^6/uL (4.5-5.9); Red Cell Distribution Width 14.9 % (11.6-14.8); White Blood Cell Count 4.5 X10^3/uL (4.5-11.0)
[2019-11-25 09:49] LABS: HEMOLYSIS 40 (0-50)
[2019-11-25 09:55] LABS: Alanine Aminotransferase 25 IU/L (<50); Albumin 4.2 g/dL (3.5-5.0); Albumin Globulin Ratio 1.4 (1.0-2.8); Alkaline Phosphatase 63 U/L (38-126); Aspartate Aminotransferase 39 IU/L (17-59); BUN Creatinine Ratio 13.8 (6-22); Bilirubin Total 0.7 mg/dL (0.2-1.3); Blood Urea Nitrogen 11 mg/dL (9-20); Carbon Dioxide 19 mmol/L (22-32); Chloride 108 mmol/L (98-107); Creatine Kinase 130 U/L (55-170); Estimated Glomerular Filt Rate > 60.0 mL/min (>60); Glucose 106 mg/dL (80-110); Potassium 3.9 mmol/L (3.4-5.1); Sodium 141 mmol/L (137-145); Total Protein 7.2 g/dL (6.3-8.2)
[2019-11-25 09:59] LABS: Ethanol (ETOH) 228 mg/dL
[2019-11-25 10:38] VITALS: BP 112/61; PULSE 69; RESP 16; O2SAT 98
[2019-11-25 10:55] VITALS: BP 105/56
[2019-11-25 11:27] VITALS: PULSE 76; RESP 11; O2SAT 96
[2019-11-25 11:31] LABS: Troponin I < 0.012 ng/mL (0.01-0.034)
[2019-11-25 12:05] VITALS: BP 115/66; PULSE 75; RESP 14; O2SAT 97
== END 2019-11-25 12:08 | disposition home or self-care (01) ==
PROVIDERS: Emergency Provider Emergency Medicine; Family Provider Family Medicine; PCP Family Medicine
DX: R55 Syncope and collapse (principal); F10.920 Alcohol use, unspecified with intoxication, uncomplicated; S06.0X1A Concussion with loss of consciousness of 30 minutes or less, initial encounter; S00.03XA Contusion of scalp, initial encounter; W19.XXXA Unspecified fall, initial encounter
CPT/HCPCS: 36415; 70450; 71045; 80053; 80320; 81003; 82550; 82553; 84484; 85025; 93005; 96360; 96361; 99285

== ENCOUNTER → 2019-12-02 08:12 | Outpatient (CLI) | payer MEDICARE, SELFPAY ==
[2019-12-02 10:04] LABS: BUN Creatinine Ratio 17.8 (6-22); Blood Urea Nitrogen 16 mg/dL (9-20); Calcium 9.2 mg/dL (8.4-10.2); Carbon Dioxide 25 mmol/L (22-32); Chloride 105 mmol/L (98-107); Cholesterol 106 mg/dL (140-199); Estimated Glomerular Filt Rate > 60.0 mL/min (>60); Glucose 104 mg/dL (80-110); HDL Cholesterol 37 mg/dL (40-60); HEMOLYSIS < 15 (0-50); LDL Cholesterol Calculated 56 mg/dL (<100); Potassium 3.9 mmol/L (3.4-5.1); Sodium 139 mmol/L (137-145); Triglycerides 65 mg/dL (35-150)
== END ==
PROVIDERS: Family Provider Family Medicine; PCP Family Medicine; Referring Provider Internal Medicine Cardiovascular Disease; Visit Provider Internal Medicine Cardiovascular Disease
DX: I48.0 Paroxysmal atrial fibrillation (principal); E78.5 Hyperlipidemia, unspecified
CPT/HCPCS: 36415; 80048; 80061

== ENCOUNTER → 2020-03-16 13:26 | Outpatient (CLI) | payer MEDICARE, SELFPAY | PROVIDERS: Family Provider Family Medicine; PCP Family Medicine; Referring Provider Family Medicine; Visit Provider Family Medicine | DX: S81.802A Unspecified open wound, left lower leg, initial encounter (principal); R60.0 Localized edema | CPT/HCPCS: 97597; 99203; 99213 ==

== ENCOUNTER → 2020-03-22 14:38 | Outpatient (CLI) | payer MEDICARE, SELFPAY | PROVIDERS: Family Provider Family Medicine; PCP Family Medicine; Referring Provider Family Medicine; Visit Provider Family Medicine | DX: R60.0 Localized edema (principal); Z48.01 Encounter for change or removal of surgical wound dressing | CPT/HCPCS: 99212; 99213 ==

== ENCOUNTER → 2020-06-06 07:10 | Outpatient (CLI) | payer MEDICARE, SELFPAY ==
[2020-06-06 09:17] LABS: BUN Creatinine Ratio 16.2 (6-22); Blood Urea Nitrogen 16 mg/dL (9-20); Calcium 9.1 mg/dL (8.4-10.2); Carbon Dioxide 31 mmol/L (22-32); Chloride 105 mmol/L (98-107); Estimated Glomerular Filt Rate > 60.0 mL/min (>60); Glucose 103 mg/dL (80-110); HEMOLYSIS < 15 (0-50); Potassium 4.2 mmol/L (3.4-5.1); Sodium 140 mmol/L (137-145)
== END ==
PROVIDERS: Family Provider Family Medicine; PCP Family Medicine; Referring Provider Internal Medicine Cardiovascular Disease; Visit Provider Internal Medicine Cardiovascular Disease
DX: I48.0 Paroxysmal atrial fibrillation (principal)
CPT/HCPCS: 36415; 80048

== ENCOUNTER → 2020-10-10 08:22 | Outpatient (CLI) | payer MEDICARE, SELFPAY ==
--- NOTE | 2020-10-10 08:24 | DI.RAD.S_ITS ---
PROCEDURE: XR LUMBAR SPINE 2-3V INDICATIONS: back pain TECHNIQUE: 3 views of the lumbar spine were acquired. COMPARISON: Located Within [facility], , -SPINE 2-3 VIEWS, 12/27/2014, 11:33. FINDINGS: Bones: 5 [id number] vertebrae are present. There is normal bony alignment. No vertebral body compression fractures. No suspicious bony lesions. There has been a mild degree of interval worsening of degenerative disc height reduction and endplate osteophyte formation at L3-4, L4-5, and L5-S1. No compression fracture has developed. Soft tissues: Overlying bowel gas pattern is normal. No suspicious soft tissue calcifications. IMPRESSION: Mild interval worsening from the comparison LS spine plain films 12/27/14. No compression fracture has developed. Spinal and foraminal stenosis likely is present from L3 through S1. Dictated by: Arjun Fisher M.D. on 10/10/2020 at 9:52 Approved by: Arjun Fisher M.D. on 10/10/2020 at 9:54
== END ==
PROVIDERS: Family Provider Family Medicine; PCP Family Medicine; Referring Provider Family Medicine; Visit Provider Family Medicine
DX: M54.32 Sciatica, left side (principal); M54.5 Low back pain
CPT/HCPCS: 72100

== ENCOUNTER → 2020-10-26 08:17 | Outpatient (CLI) | payer MEDICARE, SELFPAY ==
[2020-10-26 09:44] LABS: BUN Creatinine Ratio 18.1 (6-22); Blood Urea Nitrogen 19 mg/dL (9-20); Calcium 9.3 mg/dL (8.4-10.2); Carbon Dioxide 30 mmol/L (22-32); Chloride 100 mmol/L (98-107); Estimated Glomerular Filt Rate > 60.0 mL/min (>60); Glucose 128 mg/dL (80-110); HEMOLYSIS < 15 (0-50); Potassium 4.1 mmol/L (3.4-5.1); Sodium 136 mmol/L (137-145)
== END ==
PROVIDERS: Family Provider Family Medicine; PCP Family Medicine; Referring Provider Internal Medicine Cardiovascular Disease; Visit Provider Internal Medicine Cardiovascular Disease
DX: I10 Essential (primary) hypertension (principal)
CPT/HCPCS: 36415; 80048

== ENCOUNTER → 2020-10-30 07:56 | Outpatient (CLI) | payer MEDICARE, SELFPAY ==
[2020-10-30 09:18] LABS: Alanine Aminotransferase 43 IU/L (<50); Albumin 4.3 g/dL (3.5-5.0); Alkaline Phosphatase 63 U/L (38-126); Aspartate Aminotransferase 43 IU/L (17-59); BUN Creatinine Ratio 15.6 (6-22); Bilirubin Total 0.7 mg/dL (0.2-1.3); Blood Urea Nitrogen 15 mg/dL (9-20); Calcium 9.4 mg/dL (8.4-10.2); Carbon Dioxide 29 mmol/L (22-32); Chloride 103 mmol/L (98-107); Cholesterol 113 mg/dL (140-199); Estimated Glomerular Filt Rate > 60.0 mL/min (>60); Globulin 2.2 g/dL (1.7-4.1); Glucose 110 mg/dL (80-110); HDL Cholesterol 49 mg/dL (40-60); HEMOLYSIS < 15 (0-50); LDL Cholesterol Calculated 51 mg/dL (<100); Potassium 4.6 mmol/L (3.4-5.1); Sodium 137 mmol/L (137-145); Total Protein 6.5 g/dL (6.3-8.2); Triglycerides 65 mg/dL (35-150)
== END ==
PROVIDERS: Family Provider Family Medicine; PCP Family Medicine; Referring Provider Internal Medicine Cardiovascular Disease; Visit Provider Internal Medicine Cardiovascular Disease
DX: E78.5 Hyperlipidemia, unspecified (principal); I48.0 Paroxysmal atrial fibrillation
CPT/HCPCS: 36415; 80053; 80061

== ENCOUNTER → 2020-11-15 07:35 | Outpatient (CLI) | payer MEDICARE, SELFPAY ==
[2020-11-15 09:38] LABS: BUN Creatinine Ratio 22.4 (6-22); Blood Urea Nitrogen 22 mg/dL (9-20); Calcium 9.1 mg/dL (8.4-10.2); Carbon Dioxide 29 mmol/L (22-32); Chloride 98 mmol/L (98-107); Estimated Glomerular Filt Rate > 60.0 mL/min (>60); Glucose 111 mg/dL (80-110); Potassium 3.7 mmol/L (3.4-5.1); Sodium 138 mmol/L (137-145)
[2020-11-15 09:58] LABS: HEMOLYSIS 72 (0-50)
== END ==
PROVIDERS: Family Provider Family Medicine; PCP Family Medicine; Referring Provider Internal Medicine Cardiovascular Disease; Visit Provider Internal Medicine Cardiovascular Disease
DX: I10 Essential (primary) hypertension (principal)
CPT/HCPCS: 36415; 80048

== ENCOUNTER → 2020-12-04 10:41 | Outpatient (CLI) | payer MEDICARE, SELFPAY ==
--- NOTE | 2020-12-04 10:42 | DI.US.S_ITS ---
PROCEDURE: US SCROTUM INDICATIONS: Hydrocele TECHNIQUE: Real-time scanning was performed of the scrotum and testicles, with image documentation. Color and pulse Doppler interrogation was performed of both testicles. COMPARISON: None. FINDINGS: Right: Testicle is normal in size at 1.6 x 2.4 x 1.9 cm, and homogenous in echotexture. Epididymis is normal in overall size and morphology. No varicoceles. Overlying scrotal skin is normal in thickness. There is a 8.2 x 4.0 x 6.8 cm hydrocele on the right and an 8.4 x 5.6 x 7.0 cm on hydrocele on the left Left: Testicle is normal in size at 1.6 x 0.9 x 2.9 cm, and homogeneous in echotexture. Epididymis is normal in overall size and morphology. No varicoceles. Overlying scrotal skin is normal in thickness. Doppler: Color and pulse Doppler demonstrate normal and symmetric arterial flow in both testicles. IMPRESSION: Bilateral hydroceles, moderately large, measuring up to 8.2 cm on the right and 8.4 cm on the left. No sign of testicular mass or prior torsion. Dictated by: Arjun Fisher M.D. on 12/04/2020 at 14:38 Approved by: Arjun Fisher M.D. on 12/04/2020 at 14:40
== END ==
PROVIDERS: Family Provider Family Medicine; PCP Family Medicine; Referring Provider Specialist; Visit Provider Specialist
DX: N43.3 Hydrocele, unspecified (principal)
CPT/HCPCS: 76870

== ENCOUNTER → 2020-12-12 07:49 | Outpatient (CLI) | payer MEDICARE, SELFPAY ==
--- NOTE | 2020-12-12 | DI.RAD.S_ITS ---
PROCEDURE: XR HIP W PEL IF DONE CHEN MIN 4V INDICATIONS: Low back pain TECHNIQUE: AP pelvis with lateral view(s) of the bilateral hip(s). COMPARISON: None. FINDINGS: Bones: No fractures or dislocations. Pelvic ring appears intact. No suspicious bony lesions. There is a mild degree of joint space narrowing symmetric at each hip. Note is made of moderately severe lumbosacral spine osteophytic spurring and degenerative disc disease on the small portion of the lumbosacral spine included on the frontal view imaging from this study. Soft tissues: The visualized bowel gas pattern is normal. No suspicious soft tissue calcifications. 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 Dictated by: Arjun Fisher M.D. on 12/12/2020 at 9:39 Approved by: Arjun Fisher M.D. on 12/12/2020 at 9:40
== END ==
PROVIDERS: Family Provider Family Medicine; PCP Family Medicine; Referring Provider Neurological Surgery; Visit Provider Neurological Surgery
DX: M54.5 Low back pain (principal); M16.0 Bilateral primary osteoarthritis of hip; M51.36 Other intervertebral disc degeneration, lumbar region; M25.78 Osteophyte, vertebrae
CPT/HCPCS: 73522

== ENCOUNTER → 2021-02-06 15:43 | Outpatient (CLI) | payer MEDICARE, SELFPAY ==
[2021-02-06 16:46] LABS: BUN Creatinine Ratio 25.7 (6-22); Blood Urea Nitrogen 27 mg/dL (9-20); Calcium 9.6 mg/dL (8.4-10.2); Carbon Dioxide 31 mmol/L (22-32); Chloride 97 mmol/L (98-107); Estimated Glomerular Filt Rate > 60.0 mL/min (>60); Glucose 90 mg/dL (80-110); HEMOLYSIS < 15 (0-50); Potassium 3.7 mmol/L (3.4-5.1); Sodium 138 mmol/L (137-145)
== END ==
PROVIDERS: Family Provider Family Medicine; PCP Family Medicine; Referring Provider Internal Medicine Cardiovascular Disease; Visit Provider Internal Medicine Cardiovascular Disease
DX: I48.0 Paroxysmal atrial fibrillation (principal)
CPT/HCPCS: 36415; 80048

== ENCOUNTER → 2021-07-04 14:15 | Outpatient (CLI) | payer MEDICARE, SELFPAY ==
[2021-07-04 15:50] LABS: BUN Creatinine Ratio 15.7 (6-22); Blood Urea Nitrogen 20 mg/dL (9-20); Calcium 9.2 mg/dL (8.4-10.2); Carbon Dioxide 31 mmol/L (22-32); Chloride 102 mmol/L (98-107); Estimated Glomerular Filt Rate 54.4 mL/min (>60); Glucose 95 mg/dL (80-110); HEMOLYSIS < 15 (0-50); Magnesium 2.2 mg/dL (1.6-2.3); Potassium 4.4 mmol/L (3.4-5.1); Sodium 139 mmol/L (137-145)
[2021-07-04 16:19] LABS: Thyroid Stimulating Hormone 4.88 uIU/mL (0.47-4.68)
[2021-07-09 14:50] LABS: Free T3, Triiodothyronine Free 3.61 pg/mL (2.77-5.27); Free T4, Direct Thyroxine 1.04 ng/dL (0.78-2.19)
== END ==
PROVIDERS: Family Provider Family Medicine; PCP Family Medicine; Referring Provider Internal Medicine Cardiovascular Disease; Visit Provider Internal Medicine Cardiovascular Disease
DX: I47.2 Ventricular tachycardia (principal); I48.0 Paroxysmal atrial fibrillation
CPT/HCPCS: 36415; 80048; 83735; 84439; 84443; 84481

== ENCOUNTER → 2021-07-19 07:58 | Outpatient (CLI) | payer MEDICARE, SELFPAY ==
[2021-07-19 10:06] LABS: BUN Creatinine Ratio 13.3 (6-22); Blood Urea Nitrogen 15 mg/dL (9-20); Calcium 8.9 mg/dL (8.4-10.2); Carbon Dioxide 28 mmol/L (22-32); Chloride 106 mmol/L (98-107); Estimated Glomerular Filt Rate > 60.0 mL/min (>60); Glucose 105 mg/dL (80-110); HEMOLYSIS < 15 (0-50); Potassium 4.4 mmol/L (3.4-5.1); Sodium 140 mmol/L (137-145)
== END ==
PROVIDERS: Family Provider Family Medicine; PCP Family Medicine; Referring Provider Internal Medicine Cardiovascular Disease; Visit Provider Internal Medicine Cardiovascular Disease
DX: I10 Essential (primary) hypertension (principal)
CPT/HCPCS: 36415; 80048

== ENCOUNTER → 2022-01-31 08:49 | Outpatient (CLI) | payer MEDICARE, SELFPAY ==
[2022-01-31 10:07] LABS: Alanine Aminotransferase 23 IU/L (<50); Albumin 4.5 g/dL (3.5-5.0); Albumin Globulin Ratio 1.8 (1.0-2.8); Alkaline Phosphatase 66 U/L (38-126); Aspartate Aminotransferase 30 IU/L (17-59); BUN Creatinine Ratio 17.4 (6-22); Bilirubin Total 0.9 mg/dL (0.2-1.3); Blood Urea Nitrogen 20 mg/dL (9-20); Carbon Dioxide 31 mmol/L (22-32); Chloride 105 mmol/L (98-107); Cholesterol 130 mg/dL (140-199); Estimated Glomerular Filt Rate > 60 mL/min (>60); Globulin 2.5 g/dL (1.7-4.1); Glucose 108 mg/dL (80-110); HDL Cholesterol 41 mg/dL (40-60); HEMOLYSIS < 15 (0-50); LDL Cholesterol Calculated 67 mg/dL (<100); Potassium 4.6 mmol/L (3.4-5.1); Sodium 141 mmol/L (137-145); Triglycerides 111 mg/dL (35-150)
[2022-01-31 10:15] LABS: Free T3, Triiodothyronine Free 2.86 pg/mL (2.77-5.27); Free T4, Direct Thyroxine 1.03 ng/dL (0.78-2.19)
== END ==
PROVIDERS: Family Provider Family Medicine; PCP Family Medicine; Referring Provider Internal Medicine Cardiovascular Disease; Visit Provider Internal Medicine Cardiovascular Disease
DX: E78.5 Hyperlipidemia, unspecified (principal); R79.89 Other specified abnormal findings of blood chemistry
CPT/HCPCS: 36415; 80053; 80061; 84439; 84481

== ENCOUNTER → 2022-08-23 07:29 | Outpatient (CLI) | payer MEDICARE, SELFPAY ==
[2022-08-23 08:51] LABS: BUN Creatinine Ratio 25.9 (6-22); Blood Urea Nitrogen 29 mg/dL (9-20); Calcium 8.7 mg/dL (8.4-10.2); Carbon Dioxide 29 mmol/L (22-32); Chloride 100 mmol/L (98-107); Estimated Glomerular Filt Rate > 60 mL/min (>60); Glucose 111 mg/dL (80-110); HEMOLYSIS < 15 (0-50); Potassium 3.8 mmol/L (3.4-5.1); Sodium 137 mmol/L (137-145)
== END ==
PROVIDERS: Family Provider Family Medicine; PCP Family Medicine; Referring Provider Nurse Practitioner Family; Visit Provider Nurse Practitioner Family
DX: I51.89 Other ill-defined heart diseases (principal)
CPT/HCPCS: 36415; 80048

== ENCOUNTER → 2023-03-03 08:01 | Outpatient (CLI) | payer MEDICARE, SELFPAY ==
[2023-03-03 09:03] LABS: Add Manual Diff / Slide Review NO; Basophils Absolute Auto 100 /uL (0-100); Basophils Percent Auto 1.4 % (0-2); Eosinophils Absolute Auto 600 /uL (0-450); Hematocrit 38.8 % (41-53); Hemoglobin 13.3 g/dL (13.5-17.5); Lymphocytes Absolute Auto 1400 /uL (1100-4500); Mean Corpuscular HGB Conc 34.3 % (30-36); Mean Corpuscular Hemoglobin 30.3 PG (26-34); Mean Corpuscular Volume 88.4 fL (80-100); Monocytes Absolute Auto 600 /uL (0-900); Monocytes Percent Auto 11.3 % (3-14); Neutrophils Absolute Auto 3000 /uL (1500-7000); Neutrophils Percent Auto 52.3 % (50-75); Platelet Count 223 X10^3/uL (150-400); Red Blood Cell Count 4.39 X10^6/uL (4.5-5.9); Red Cell Distribution Width 14.3 % (11.6-14.8); White Blood Cell Count 5.7 X10^3/uL (4.5-11.0)
[2023-03-03 09:17] LABS: BUN Creatinine Ratio 17.5 (6-22); Blood Urea Nitrogen 18 mg/dL (9-20); Calcium 8.4 mg/dL (8.4-10.2); Carbon Dioxide 30 mmol/L (22-32); Chloride 100 mmol/L (98-107); Estimated Glomerular Filt Rate > 60 mL/min (>60); Glucose 110 mg/dL (80-110); HEMOLYSIS < 15 (0-50); Potassium 3.7 mmol/L (3.4-5.1); Sodium 137 mmol/L (137-145)
== END ==
PROVIDERS: Family Provider Family Medicine; PCP Family Medicine; Referring Provider Physician Assistant; Visit Provider Physician Assistant
DX: I48.92 Unspecified atrial flutter (principal)
CPT/HCPCS: 36415; 80048; 85025

== ENCOUNTER → 2023-03-24 08:28 | Outpatient (CLI) | payer MEDICARE, SELFPAY ==
--- NOTE | 2023-03-24 08:30 | DI.RAD.S_ITS ---
PROCEDURE: XR HIP W PEL IF DONE RT 2V INDICATIONS: hip pain, weakness, stiffness TECHNIQUE: Right views of the hip were acquired. COMPARISON: [facility], CR, XR HIP W PEL IF DONE CHEN 3TO4V, 12/12/2020, 7:59. FINDINGS: Bones: No fractures or dislocations. No suspicious bony lesions. The visualized pelvic ring appears intact. Degenerative changes noted lower lumbar spine with degenerative enthesophyte noted involving both iliac wings. Both hip joints are preserved. Soft tissues: No suspicious soft tissue calcifications or masses. Atherosclerotic vascular calcification IMPRESSION: Degenerative lower lumbar spine. Hip joint spaces are preserved Approved by: Mayo Arnold M.D. on 03/24/2023 at 12:56
== END ==
PROVIDERS: Family Provider Family Medicine; PCP Family Medicine; Referring Provider Family Medicine; Visit Provider Family Medicine
DX: M25.559 Pain in unspecified hip (principal); M47.816 Spondylosis without myelopathy or radiculopathy, lumbar region
CPT/HCPCS: 73502

== ENCOUNTER → 2023-05-08 06:38 | Outpatient (CLI) | payer MEDICARE, SELFPAY ==
--- NOTE | 2023-05-08 06:40 | DI.CT.S_ITS ---
PROCEDURE: CT LUMBAR SPINE WO CON INDICATIONS: low back pain TECHNIQUE: Noncontrast 3 mm thick sections acquired from the T12 level to the sacrum. Sagittal and coronal reformats were constructed. For radiation dose reduction, the following was used: automated exposure control. COMPARISON: [facility], CR, XR LUMBAR SPINE 2-3V, 10/10/2020, 8:25. [facility], MR, L-SPINE WITHOUT CONTRAST, 09/15/2015, 10:44. FINDINGS: Image quality: This examination is limited by involuntary motion artifact. Bones: No acute vertebral body compression fractures. No suspicious lytic or blastic bony lesions. No pars defects. Minimal retrolisthesis can be seen at the L2-L3 level. T11-T12: Moderate to severe loss of disc height is seen. There is a degree of bony fusion seen. Bridging anterior osteophytes are seen. Mild generalized disc bulge is seen. Moderate bilateral neural foraminal narrowing is seen. No central canal narrowing is seen. T12-L1: No significant abnormality is seen. L1-L2: The disc height is relatively well preserved. Moderate generalized disc bulge is seen. There is a mild central disc protrusion. Moderate to severe neural foraminal narrowing is seen. Moderate central canal narrowing is seen. L2-L3: Mild loss of disc height is seen. Vacuum disc phenomenon is seen at this level. At least moderate disc bulge is seen. There is moderate right-sided and moderate to severe left-sided neural foraminal narrowing. At least moderate central canal narrowing is seen. L3-L4: Moderate to severe loss of disc height is seen. There is a degree of vertebral body fusion seen on the left. Bridging endplate osteophytes are seen on the left, as on series 4, image 15. At least moderate disc bulge is seen. At least moderate facet hypertrophy is seen at this level. There is at least moderate right-sided and moderate to severe left-sided neural foraminal narrowing. There is a degree of compression seen upon the exiting nerve roots. Moderate central canal narrowing is seen. L4-L5: Severe loss of disc height is seen. There is a degree of fusion seen on the right, as on series 4, image 20. Bridging endplate osteophytes are seen on the right. At least moderate disc bulge is seen. At least moderate facet hypertrophy is seen, right worse than left. Moderate bilateral neural foraminal narrowing is seen. Moderate central canal narrowing is seen. L5-S1: At least moderate loss of disc height is seen. Vacuum disc phenomenon is seen at this level. At least moderate disc bulge is seen. At least moderate facet hypertrophy is seen at this level. There is at least moderate bilateral neural foraminal narrowing at this site. Mild central canal narrowing is seen. Soft tissues: No retroperitoneal masses or hematomas. Visualized aorta is normal in caliber. Atherosclerotic calcification is noted. IMPRESSION: Multiple levels lumbar spine degenerative change can be seen, which are overall worst inferiorly. Dictated by: Kiet Parker M.D. on 05/08/2023 at 17:26 Approved by: Kiet Parker M.D. on 05/08/2023 at 17:44
== END ==
PROVIDERS: Family Provider Family Medicine; PCP Family Medicine; Referring Provider Family Medicine; Visit Provider Family Medicine
DX: M47.816 Spondylosis without myelopathy or radiculopathy, lumbar region (principal); M47.817 Spondylosis without myelopathy or radiculopathy, lumbosacral region; M54.50 Low back pain, unspecified
CPT/HCPCS: 72131

== ENCOUNTER → 2023-05-26 08:06 | Outpatient (CLI) | payer MEDICARE, SELFPAY ==
[2023-05-26 09:07] LABS: Alanine Aminotransferase 23 IU/L (<50); Albumin 4.3 g/dL (3.5-5.0); Albumin Globulin Ratio 1.8 (1.0-2.8); Alkaline Phosphatase 73 U/L (38-126); Aspartate Aminotransferase 27 IU/L (17-59); BUN Creatinine Ratio 15.6 (6-22); Bilirubin Total 1.2 mg/dL (0.2-1.3); Blood Urea Nitrogen 17 mg/dL (9-20); Calcium 9.4 mg/dL (8.4-10.2); Carbon Dioxide 25 mmol/L (22-32); Chloride 101 mmol/L (98-107); Cholesterol 131 mg/dL (140-199); Estimated Glomerular Filt Rate > 60 mL/min (>60); Globulin 2.4 g/dL (1.7-4.1); Glucose 118 mg/dL (80-110); HDL Cholesterol 47 mg/dL (40-60); HEMOLYSIS < 15 (0-50); LDL Cholesterol Calculated 66 mg/dL (<100); Potassium 3.7 mmol/L (3.4-5.1); Sodium 137 mmol/L (137-145); Total Protein 6.7 g/dL (6.3-8.2); Triglycerides 88 mg/dL (35-150)
== END ==
PROVIDERS: Family Provider Family Medicine; PCP Family Medicine; Referring Provider Internal Medicine Cardiovascular Disease; Visit Provider Internal Medicine Cardiovascular Disease
DX: E78.5 Hyperlipidemia, unspecified (principal)
CPT/HCPCS: 36415; 80053; 80061

== ENCOUNTER 2023-07-22 15:04 | Emergency (ER) | payer MEDICARE, SELFPAY ==
[2023-07-22] VITALS (7 sets, daily range): BP systolic 111–125; BP diastolic 56–58; PULSE 60–69; RESP 13–23; TEMP 36.4; O2SAT 93–97; BMI 30.3
--- NOTE | 2023-07-22 15:14 | DI.RAD.S_ITS ---
PROCEDURE: XR CHEST 1V INDICATIONS: chest pain TECHNIQUE: One view of the chest was acquired. COMPARISON: [facility], CR, XR CHEST 1V, 11/25/2019, 8:41. FINDINGS: Surgical changes and devices: Cardiac pacemaker is unchanged. Lungs and pleura: There is diffuse interstitial prominence and pulmonary vascular engorgement. Mediastinum: Mediastinal contours appear normal. Heart size is normal. Bones and chest wall: No suspicious bony lesions. Overlying soft tissues appear unremarkable. IMPRESSION: Interstitial prominence and pulmonary vascular engorgement suggesting fluid overload. Dictated by: Paulina Vivas M.D. on 07/22/2023 at 15:37 Approved by: Paulina Vivas M.D. on 07/22/2023 at 15:37
[2023-07-22 15:31] LABS: Add Manual Diff / Slide Review NO; Basophils Absolute Auto 100 /uL (0-100); Basophils Percent Auto 0.6 % (0-2); Eosinophils Absolute Auto 100 /uL (0-450); Eosinophils Percent Auto 1.2 % (2-4); Hematocrit 38.6 % (41-53); Hemoglobin 13.3 g/dL (13.5-17.5); Lymphocytes Absolute Auto 800 /uL (1100-4500); Lymphocytes Percent Auto 6.8 % (25-40); Mean Corpuscular HGB Conc 34.4 % (30-36); Mean Corpuscular Hemoglobin 30.4 PG (26-34); Mean Corpuscular Volume 88.2 fL (80-100); Monocytes Absolute Auto 800 /uL (0-900); Monocytes Percent Auto 6.8 % (3-14); Neutrophils Absolute Auto 9800 /uL (1500-7000); Neutrophils Percent Auto 84.6 % (50-75); Platelet Count 210 X10^3/uL (150-400); Red Blood Cell Count 4.38 X10^6/uL (4.5-5.9); Red Cell Distribution Width 14.1 % (11.6-14.8); White Blood Cell Count 11.6 X10^3/uL (4.5-11.0)
[2023-07-22 15:43] LABS: INR 1.5 (0.9-1.3); Prothrombin Time 16.7 SECONDS (9.4-12.5)
[2023-07-22 15:46] LABS: PTT Partial Thromboplastin Tim 40 SECONDS (25.1-36.5)
[2023-07-22 15:48] LABS: Alanine Aminotransferase 25 IU/L (<50); Albumin 4.1 g/dL (3.5-5.0); Albumin Globulin Ratio 1.6 (1.0-2.8); Alkaline Phosphatase 61 U/L (38-126); Aspartate Aminotransferase 32 IU/L (17-59); BUN Creatinine Ratio 17.6 (6-22); Bilirubin Total 1.5 mg/dL (0.2-1.3); Blood Urea Nitrogen 19 mg/dL (9-20); Carbon Dioxide 28 mmol/L (22-32); Chloride 101 mmol/L (98-107); Creatine Kinase 102 U/L (55-170); Estimated Glomerular Filt Rate > 60 mL/min (>60); Globulin 2.6 g/dL (1.7-4.1); Glucose 162 mg/dL (80-110); HEMOLYSIS < 15 (0-50); Lipase 43 U/L (23-300); Magnesium 1.9 mg/dL (1.6-2.3); Potassium 3.6 mmol/L (3.4-5.1); Sodium 136 mmol/L (137-145); Total Protein 6.7 g/dL (6.3-8.2)
[2023-07-22 16:00] LABS: Troponin I 0.029 ng/mL (0.01-0.034)
[2023-07-22 16:04] LABS: Influenza A - CEPHEID Flu A NEGATIVE (NEGATIVE); Influenza B - CEPHEID Flu B NEGATIVE (NEGATIVE); Respiratory Syncytial Virus Negative (Negative)
[2023-07-22 16:08] LABS: COVID-19 CEPHEID 4-PLEX PCR Negative (Negative)
--- NOTE | 2023-07-22 17:16 | ED.ARRPALP ---
HPI - Arrhythmia/Palpitations General Chief Complaint: Arrhythmia/Palpitations Stated Complaint: sent by Dr Narvaez, r/o pneumonia, cardiac wrkup Time Seen by Provider: 07/22/23 17:16 Source: patient Mode of arrival: Ambulatory Limitations: no limitations History of Present Illness HPI narrative: 82-year-old male history of atrial fibrillation on Eliquis, aspirin and dofetilide, hypertension with complaint of fatigue and cough last night.? Patient states cough is improved today.? No chest pain, no shortness of breath but has felt more fatigued.? Denies any nausea or vomiting, no chills no fevers cold cough or congestion other than some very slight cough today that has been nonproductive.? He states he would a coughing fit last night but none persistently.? Denies any new swelling in extremities no issues with bowel movements or urination.? Patient had several ablations in the past followed by a pacemaker.? He did have stents placed in his heart in 1999.? Patient former smoker, occasional alcohol, no illicit.? Dr. Mckinley is his primary care.? Dr. Narvaez as his manager of international. Related Data Home Medications Medication Instructions Recorded Confirmed aspirin 81 mg tablet,delayed 81 mg PO DAILY ##0 11/18/11 02/26/22 release atorvastatin 40 mg tablet (Lipitor) 40 mg PO BEDTIME ##0 11/18/11 02/26/22 furosemide 20 mg tablet 20 mg PO DAILY ##0 09/04/16 02/26/22 dofetilide 250 mcg capsule 750 mcg PO Q12H 02/05/18 02/26/22 metoprolol succinate 25 mg 25 mg PO QPM 02/05/18 02/26/22 tablet,extended release 24 hr apixaban 5 mg tablet (Eliquis) 5 mg PO BID #0 tabs 11/30/18 02/26/22 losartan 25 mg tablet 25 mg PO DAILY 09/15/19 02/26/22 Previous Rx's Medication Instructions Recorded cyclobenzaprine 5 mg tablet 5 mg PO TID PRN muscle spasm #30 03/30/21 tabs atovaquone 250 mg-proguanil 100 mg See Rx Instructions PO .COMPLEX 12/27/22 tablet (Malarone) #15 tabs Allergies Allergy/AdvReac Type Severity Reaction Status Date / Time Penicillins [PENICILLINS] Allergy Severe hives Verified 03/26/23 13:31 erythromycin base Allergy Mild nausea Verified 03/26/23 13:31 [From ERYTHROCIN] (unbuffered) Review of Systems Review of Systems ROS Unobtainable: All systems reviewed & are unremarkable except as noted in HPI and below Patient History Medical History Myocardial infarction (~1999) Umbilical hernia Dysphonia (01/05/18) Vocal cord 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/18) Pharyngoesophageal dysphagia (2015) 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) History of basal cell carcinoma (BCC) of skin Hydrocele (2015) Cervical radiculopathy Lumbar radiculopathy Shoulder pain (1989) Fibula fracture (1979) Tuberculosis Diverticular disease (2014) DVT (deep venous thrombosis) (1987) CAD (coronary artery disease) (1999) Abnormal CXR (chest x-ray) (1997) Tinnitus (1994) Atrial fibrillation (2009) Chicken pox (~1950) Mumps (~1949) Rosacea (~1979) Presence of cardiac pacemaker (02/08/16) Surgical History History of coronary artery stent placement H/O rotator cuff surgery Hx of hernia repair Hx of laminectomy (~10/2018) Hx of bilateral cataract extraction (2018) History of right inguinal hernia repair (02/16/09) History of colonoscopy (05/25/14) History of left heart catheterization (05/2016) Status post ablation of atrial flutter (11/2010) Status post ablation of atrial fibrillation (09/18/16) Status post biventricular pacemaker (07/01/17) Stented coronary artery (1999) Status post epidural steroid injection Anesthesia Status post biopsy (08/15/15) Status post arthroscopy (1987) Status post arthroscopy (~2005) History of tonsillectomy (194) Family History Brother Cancer Bladder cancer Hodgkin's lymphoma Father Pulmonary embolism Mother Cancer Non-Hodgkin's lymphoma Social History (Reviewed 07/22/23 @ 18:25 by BOBBY Lao marital status: number of children: 2 household members: spouse lives independently: Yes caregiver/support person: No housing: house occupational status: previously employed Smoking Status: Former smoker Tobacco: How many years used: 10 second hand exposure: No alcohol intake: former substance use type: does not use caffeine: Yes Smoking Status: Former smoker alcohol intake frequency: 0-2 drinks per day Substance Use Type: does not use Exam Narrative Exam Narrative: GENERAL: Alert and oriented x three, well-appearing elderly male in mild distress. HEENT: Head normocephalic, atraumatic, EOMI, pupils reactive, no nasal congestion. Face symmetric, moist mucous membranes NECK: Supple, full range of motion CARDIOVASCULAR: Regular rate and rhythm without murmurs, rubs or gallops. Mild JVD. RESPIRATORY: Breath sounds equal bilaterally, no wheezes rales or rhonchi. No tachypnea or accessory muscle use. ABDOMEN: Soft, nontender. Normoactive bowel sounds all 4 quadrants. No guarding or rebound, rigidity, no mass : No CVA tenderness EXTREMITIES: Normal range of motion, no clubbing, trace edema edema bilateral lower extremities. Neurovascularly intact NEUROLOGICAL: Cranial nerves II through XII grossly intact. Moving all extremities SKIN: Warm, dry, no petechiae, no rashes or lesions. Initial Vital Signs Initial Vital Signs: Vital Signs Temperature 97.5 F L 07/22/23 15:09 Pulse Rate 66 07/22/23 15:09 Respiratory Rate 18 07/22/23 15:09 Blood Pressure 125/57 L 07/22/23 15:09 Pulse Oximetry 95 07/22/23 15:09 Oxygen Delivery Method Room Air 07/22/23 15:09 Course Orders Ordered: Discontinued Medications Aspirin (Aspirin 81 Mg Chew Tab) 324 mg PO NOW ONE Stop: 07/22/23 15:15 Last Admin: 07/22/23 16:47 Dose: Not Given Documented By: CAMILLE Furosemide (Furosemide 40 Mg/4 Ml Vial) 40 mg IV NOW ONE Stop: 07/22/23 18:00 Last Admin: 07/22/23 18:04 Dose: 40 mg Documented By: CAMILLE Vital Signs Vital signs: Vital Signs - 8 hr 07/22/23 15:09 07/22/23 15:44 07/22/23 16:00 Temperature 97.5 F L Pulse Rate 66 69 60 Respiratory Rate 18 14 Blood Pressure 125/57 L Pulse Oximetry 95 94 93 Oxygen Delivery Method Room Air 07/22/23 16:01 07/22/23 16:01 07/22/23 16:30 Temperature Pulse Rate 60 60 Respiratory Rate 14 13 Blood Pressure 111/58 L Pulse Oximetry 93 94 Oxygen Delivery Method 07/22/23 16:30 07/22/23 17:00 07/22/23 17:00 Temperature Pulse Rate 60 Respiratory Rate 14 Blood Pressure 117/56 L 115/56 L Pulse Oximetry 95 Oxygen Delivery Method 07/22/23 17:30 07/22/23 17:30 Temperature Pulse Rate 61 Respiratory Rate 23 Blood Pressure 115/57 L Pulse Oximetry 97 Oxygen Delivery Method MDM - Arrhythmia/Palpitations Lab Data 07/22/23 15:19 07/22/23 15:19 Labs: Lab Results 07/22/23 07/22/23 Range/Units 15:15 15:19 WBC 11.6 H (4.5-11.0) X10^3/uL RBC 4.38 L (4.5-5.9) X10^6/uL Hgb 13.3 L (13.5-17.5) g/dL Hct 38.6 L (41-53) % MCV 88.2 (80-100) fL MCH 30.4 (26-34) PG MCHC 34.4 (30-36) % RDW 14.1 (11.6-14.8) % Plt Count 210 (150-400) X10^3/uL Neut % (Auto) 84.6 H (50-75) % Lymph % (Auto) 6.8 L (25-40) % [place] % (Auto) 6.8 (3-14) % Eos % (Auto) 1.2 L (2-4) % Baso % (Auto) 0.6 (0-2) % Neut # (Auto) 9800 H (1547-7813) /uL Lymph # (Auto) 800 L (1782-1184) /uL [place] # (Auto) 800 (0-900) /uL Eos # (Auto) 100 (0-450) /uL Baso # (Auto) 100 (0-100) /uL PT 16.7 H (9.4-12.5) SECONDS INR 1.5 H (0.9-1.3) APTT 40 H (25.1-36.5) SECONDS Sodium 136 L (137-145) mmol/L Potassium 3.6 (3.4-5.1) mmol/L Chloride 101 (98-107) mmol/L Carbon Dioxide 28 (22-32) mmol/L BUN 19 (9-20) mg/dL Creatinine 1.08 (0.66-1.25) mg/dL Estimated GFR > 60 (>60) mL/min BUN/Creatinine Ratio 17.6 (6-22) Glucose 162 H (80-110) mg/dL Calcium 9.0 (8.4-10.2) mg/dL Magnesium 1.9 (1.6-2.3) mg/dL Total Bilirubin 1.5 H (0.2-1.3) mg/dL AST 32 (17-59) IU/L ALT 25 (<50) IU/L Alkaline Phosphatase 61 (38-126) U/L Total Creatine Kinase 102 (55-170) U/L Troponin I 0.029 (0.01-0.034) ng/mL NT-Pro-B Natriuret Pep 2160 H (<450) pg/mL Total Protein 6.7 (6.3-8.2) g/dL Albumin 4.1 (3.5-5.0) g/dL Globulin 2.6 (1.7-4.1) g/dL Albumin/Globulin Ratio 1.6 (1.0-2.8) Lipase 43 (23-300) U/L SARS-CoV-2 (PCR) Negative (Negative) Influenza A (RT-PCR) Flu a negative (NEGATIVE) Influenza B (RT-PCR) Flu b negative (NEGATIVE) RSV (PCR) Negative (Negative) Imaging Data Chest x-ray: Radiologist's Impresson: Close Chest X-Ray (Signed) Paulina Vivas - 07/22/23 DI Result CC 05/15/[address] (Signed) Kiet Parker - 05/08/23 Hip X-Ray (Signed) Mayo Arnold - 03/24/23 Hip X-Ray (Signed) Arjun Fisher - 12/12/20 Scrotum Ultrasound (Signed) Arjun Fisher - 12/04/20 Lumbar Spine X-Ray (Signed) Arjun Fisher - 10/10/20 DI Result CC 10/01/[address] (Signed) Charito Bragg - 11/25/19 Chest X-Ray (Signed) Ramsey Kuo - 11/25/19 Abdomen/Pelvis CT (Signed) Adam Zuletadiah - 10/22/19 Lumbar Puncture Fluoroscopy (Signed) Frank Moreno - 01/09/[address] (Signed) Frank Moreno - 01/09/18 Echocardiogram Ultrasound (Signed) Scott Narvaez - 12/31/17 Chest X-Ray (Signed) PhillipArjun - 12/30/17 Launch?Image [address] [address] XRay Report Signed Patient: Alejandro Morrell MR#: [id number] : 1940 Acct:[id number] Age/Sex: 82 / M Date of Service: 07/22/23 Loc: ED Accession Number: [id number] Procedure: XR chest 1V Ordering Provider: Marielle Fowler D.O. PROCEDURE: XR CHEST 1V INDICATIONS: chest pain TECHNIQUE: One view of the chest was acquired. COMPARISON: [facility], , XR CHEST 1V, 11/25/2019, 8:41. FINDINGS: Surgical changes and devices: Cardiac pacemaker is unchanged. Lungs and pleura: There is diffuse interstitial prominence and pulmonary vascular engorgement. Mediastinum: Mediastinal contours appear normal. Heart size is normal. Bones and chest wall: No suspicious bony lesions. Overlying soft tissues appear unremarkable. IMPRESSION: Interstitial prominence and pulmonary vascular engorgement suggesting fluid overload. Dictated by: Paulina Vivas M.D. on 07/22/2023 at 15:37 Approved by: Paulina Vivas M.D. on 07/22/2023 at 15:37 ECG Data Attestation: I personally reviewed and interpreted this ECG as follows: Interpretation: Paced rhythm rate of 60 MS 168 QRS of 148 QTC [address] No acute ST change. MDM Narrative Medical decision making narrative: 82-year-old male with history of atrial fibrillation history of CHF is on torsemide 30 mg daily he states he has been stable on this dose for the past year. Has had some increased fatigue over the past day had cough he is not had a lot of shortness of breath or other edema lab workup CBC shows appropriate hemoglobin white count slightly elevated 11.6 normal platelets normal INR glucose of 162. Appropriate creatinine electrolytes bilirubin 1.5, ALT is negative. Troponin is 0.029, for plexus negative chest x-ray shows interstitial prominence consistent with CHF. BNP is elevated today. Discussed with patient we will give a dose of Lasix increase his torsemide for the next 3 days and have him follow up with his cardiology team. Patient to return if any other new or concerning changes. Patient family feel comfortable with this time with returning home. Patient ambulated from the department under his own power without any assistance. He appears well. He is not had any hypoxia or vital sign changes. Discharge Plan Departure Patient Disposition: Home Clinical Impression: CHF (congestive heart failure) Instructions: DI for Heart Failure Activity Restrictions/Additional Instructions: Please follow-up with Dr. Narvaez for recheck. Call the office tomorrow to let them know you were seen in the your medications were adjusted. You appear to be having some mild congestive heart failure. Increase your torsemide to 40 mg (2 tablets) for 3 days then return to your normal 30 mg (1.5 tablets) daily. Continue your other home medications as prescribed. Please return for new or worsening chest pain, shortness of breath, lightheadedness or passing out, increasing swelling of extremities, increasing difficulty with ambulation or fatigue or other new or concerning changes. Prescriptions: No Action losartan 25 mg tablet 25 mg PO DAILY atorvastatin [Lipitor] 40 MG tablet 40 mg PO BEDTIME Qty: 0 aspirin 81 mg Tablet,Delayed Release (Dr/Ec) 81 mg PO DAILY Qty: 0 furosemide 20 MG tablet 20 mg PO DAILY Qty: 0 Eliquis 5 mg tablet 5 mg PO BID Qty: 0 cyclobenzaprine 5 mg tablet 5 mg PO TID PRN (Reason: muscle spasm) Qty: 30 0RF atovaquone-proguanil [Malarone] 250-100 mg tablet See Rx Instructions PO .COMPLEX Qty: 15 0RF Rx Instructions: take 1 tab once daily for 2days before exposure, during time in area, and for 7 days after leaving area metoprolol succinate 25 mg tablet extended release 24 hr 25 mg PO QPM dofetilide 250 mcg capsule 750 mcg PO Q12H Referrals: Bruna Mckinley MD [Primary Care Provider] - Scott Narvaez MD [Physician] - Stand Alone Forms: Patient Portal/API
[2023-07-22 17:55] LABS: NT-proBNP (BNP-Adult 18+) 2160 pg/mL (<450)
[2023-07-22] MEDS: FUROSEMIDE 40 MG/4 ML VIAL IV (18:04)
== END 2023-07-22 18:40 | disposition home or self-care (01) ==
PROVIDERS: Emergency Provider Emergency Medicine; Family Provider Family Medicine; PCP Family Medicine; Referring Provider Internal Medicine Cardiovascular Disease
DX: I11.0 Hypertensive heart disease with heart failure (principal); I50.9 Heart failure, unspecified; Z87.891 Personal history of nicotine dependence
CPT/HCPCS: 0241U; 36415; 71045; 80053; 82550; 83690; 83735; 83880; 84484; 85025; 85610; 85730; 93005; 96374; 99284; J1940

== ENCOUNTER → 2023-10-23 09:47 | Outpatient (CLI) | payer MEDICARE, SELFPAY ==
--- NOTE | 2023-10-23 09:50 | DI.US.S_ITS ---
PROCEDURE: US CAROTID DOPPLER BI INDICATIONS: BILATERAL CAROTID ARTERY STENOSIS TECHNIQUE: Color and pulse Doppler interrogation was performed of both carotid systems, with image documentation and velocity measurements. COMPARISON: [facility], US, CAROTID ARTERY DOPPLER BILAT, 05/11/2015, 8:36. FINDINGS: Stenosis calculations are based on SRU (Society of Radiologists in Ultrasound) criteria. Right side: Brachial blood pressure: 111/68 mm Hg. Common carotid artery peak systolic velocity: 66 cm/sec. Internal carotid artery peak systolic velocity: 59 cm/sec. Internal carotid artery end diastolic velocity: 17 cm/sec. External carotid artery peak systolic velocity: 61 cm/sec. ICA/CCA peak systolic ratio: 0.9. Shore scale imaging description: Heavy scattered plaque Percent internal carotid artery stenosis: Less than 50%. Vertebral artery: Flow direction is antegrade. Left side: Brachial blood pressure: 118/64 mm Hg. Common carotid artery peak systolic velocity: 78 cm/sec. Internal carotid artery peak systolic velocity: 81 cm/sec. Internal carotid artery end diastolic velocity: 21 cm/sec. External carotid artery peak systolic velocity: 67 cm/sec. ICA/CCA peak systolic ratio: 1.2. Shore scale imaging description: Heavy scattered plaque Percent internal carotid artery stenosis: Less than 50%. Vertebral artery: Flow direction is antegrade. IMPRESSION: Stable less than 50% bilateral internal carotid artery stenosis. Dictated by: Koby Rod [facility] Interpreted: Christopher Mejia MD on 10/23/2023 at 11:51 Transcribed by: CASE on 10/23/2023 at 11:52 Approved by: Christopher Mejia M.D. on 10/23/2023 at 20:35
--- NOTE | 2023-10-24 01:05 | DI.NM.S_ITS ---
DATE OF SERVICE: 10/23/2023 PROCEDURE: Pharmacologic vasodilator stress and rest myocardial perfusion imaging with gating to assess ejection fraction and regional wall motion. ORDERING PROVIDER: Scott Narvaez MD INDICATIONS: The patient is an 83-year-old male with a history of previous myocardial infarction and LAD stenting, recurrent atrial flutter, pacemaker implantation and ablation, with recent fatigue and dyspnea with an elevated BNP and significant pulmonary hypertension. CARDIAC STRESS: Per protocol, 0.4 mg of regadenoson was infused with a flat hemodynamic response. He had no chest discomfort or other anginal symptoms. His resting ECG shows probable ventricular pacing with fusion beats. ST segments appeared normal and there were no significant ST-segment shifts and there were no arrhythmias with stress. Per protocol, 25.9 millicuries of technetium-99m Myoview was injected and he was imaged 20 minutes later using a gated SPECT acquisition protocol. Earlier in the day while at rest, he had been injected with 11 millicuries of technetium-99m Myoview and was imaged 15 minutes later, again using a gated SPECT acquisition protocol. FINDINGS: 1. Raw data. There is fair myocardial tracer uptake with suggestion of increased left ventricular volumes. The lung/heart ratio is borderline elevated at 0.40 with a normal TID ratio of 1.04. 2. Quantitated gated SPECT: Post-stress ejection fraction is estimated at 70% with a small focal area of akinesis at the apex, possibly reflecting pacemaker activation or previous infarction, but no other focal wall motion abnormalities. Resting ejection fraction is 74% with a similar contraction pattern and a mildly increased resting end-diastolic volume of 128 mL. 3. Myocardial perfusion imaging: Post-stress supine images show a moderate perfusion defect in the very distal anterior wall and apex, extending slightly into the periapical segments. This defect improves, but does not completely resolve on the prone images. There are no other perfusion defects. The resting images show a similar perfusion pattern, although with slight improvement in the apical defect. IMPRESSION: 1. Abnormal myocardial perfusion study. 2. Small, partially reversible perfusion defect in the distal anterior wall and apex extending into the periapical segments that improves, but does not resolve on prone images, possibly reflecting pacemaker activation but a small volume of previous infarction with mild tito-infarct ischemia cannot be entirely excluded. Yet, if present, this occupies a small volume of myocardium and there is no compelling evidence for any significant myocardial ischemia. 3. Mildly increased left ventricular volumes with preserved systolic function but with a small, focal apical wall motion abnormality, again possibly reflecting pacemaker activation or prior myocardial infarction. The lung/heart ratio is borderline elevated at 0.40 which could be an indication of pulmonary congestion but clinical correlation is needed. 5. No angina with pharmacologic vasodilator stress but a limited hemodynamic response. He has probable paced rhythm but no obvious ST-segment shifts, although the paced rhythm reduces the sensitivity for the ST analysis. 6. Compared to the previous myocardial perfusion study of 05/10/2012, a very similar perfusion pattern was seen with a predominantly fixed, but slightly reversible apical defect that persisted on the prone images. Left ventricular function was similar with an ejection fraction of 64% and a resting end-diastolic volume of 131 mL, suggesting the absence of any significant change since the previous study. Alejandro Morrell - RS/lissette/ec doc#: [id number]/job#: [id number] dd: 10/23/2023 16:37:00 dt: 10/24/2023 00:37:00 DICTATING MD/COPIES TO: Nicholas Stewart MD; Scott Narvaez MD COPIES MNE: EVAN;
== END ==
PROVIDERS: Family Provider Family Medicine; PCP Family Medicine; Referring Provider Internal Medicine Cardiovascular Disease; Visit Provider Internal Medicine Cardiovascular Disease
DX: I65.23 Occlusion and stenosis of bilateral carotid arteries (principal); I50.31 Acute diastolic (congestive) heart failure; I25.10 Atherosclerotic heart disease of native coronary artery without angina pectoris; R94.39 Abnormal result of other cardiovascular function study; I48.92 Unspecified atrial flutter; I27.20 Pulmonary hypertension, unspecified; I25.2 Old myocardial infarction; R53.83 Other fatigue; R06.00 Dyspnea, unspecified; R79.89 Other specified abnormal findings of blood chemistry; Z95.0 Presence of cardiac pacemaker; Z95.5 Presence of coronary angioplasty implant and graft
CPT/HCPCS: 78452; 93017; 93880; A9502; J2785

== ENCOUNTER → 2023-10-30 14:11 | Outpatient (CLI) | payer MEDICARE, SELFPAY ==
[2023-10-30 15:32] LABS: BUN Creatinine Ratio 20.7 (6-22); Blood Urea Nitrogen 23 mg/dL (9-20); Calcium 9.2 mg/dL (8.4-10.2); Carbon Dioxide 29 mmol/L (22-32); Chloride 105 mmol/L (98-107); Estimated Glomerular Filt Rate > 60 mL/min (>60); Glucose 90 mg/dL (80-110); HEMOLYSIS < 15 (0-50); Sodium 141 mmol/L (137-145)
== END ==
LOC: LAB 14:13
PROVIDERS: Family Provider Family Medicine; PCP Family Medicine; Referring Provider Internal Medicine Cardiovascular Disease; Visit Provider Internal Medicine Cardiovascular Disease
DX: I50.31 Acute diastolic (congestive) heart failure (principal)
CPT/HCPCS: 36415; 80048

== ENCOUNTER → 2023-11-28 14:33 | Outpatient (CLI) | payer MEDICARE, SELFPAY ==
[2023-11-28 15:35] LABS: Add Manual Diff / Slide Review NO; Basophils Absolute Auto 100 /uL (0-100); Basophils Percent Auto 1.1 % (0-2); Eosinophils Absolute Auto 500 /uL (0-450); Hematocrit 40.4 % (41-53); Hemoglobin 13.8 g/dL (13.5-17.5); Lymphocytes Absolute Auto 1600 /uL (1100-4500); Lymphocytes Percent Auto 23.7 % (25-40); Mean Corpuscular HGB Conc 34.1 % (30-36); Mean Corpuscular Hemoglobin 31.2 PG (26-34); Mean Corpuscular Volume 91.4 fL (80-100); Monocytes Absolute Auto 800 /uL (0-900); Monocytes Percent Auto 11.9 % (3-14); Neutrophils Absolute Auto 3700 /uL (1500-7000); Neutrophils Percent Auto 56.3 % (50-75); Platelet Count 231 X10^3/uL (150-400); Red Blood Cell Count 4.42 X10^6/uL (4.5-5.9); Red Cell Distribution Width 14.5 % (11.6-14.8); White Blood Cell Count 6.6 X10^3/uL (4.5-11.0)
[2023-11-28 15:54] LABS: BUN Creatinine Ratio 16.4 (6-22); Blood Urea Nitrogen 19 mg/dL (9-20); Calcium 9.1 mg/dL (8.4-10.2); Carbon Dioxide 31 mmol/L (22-32); Chloride 103 mmol/L (98-107); Estimated Glomerular Filt Rate > 60 mL/min (>60); Glucose 95 mg/dL (80-110); HEMOLYSIS < 15 (0-50); Sodium 141 mmol/L (137-145)
== END ==
PROVIDERS: Family Provider Family Medicine; PCP Family Medicine; Referring Provider Physician Assistant; Visit Provider Physician Assistant
DX: I48.0 Paroxysmal atrial fibrillation (principal)
CPT/HCPCS: 36415; 80048; 85025

== ENCOUNTER → 2024-01-26 09:32 | Outpatient (CLI) | payer MEDICARE, SELFPAY ==
[2024-01-26 11:11] LABS: Add Manual Diff / Slide Review NO; Basophils Absolute Auto 100 /uL (0-100); Basophils Percent Auto 0.8 % (0-2); Eosinophils Absolute Auto 400 /uL (0-450); Eosinophils Percent Auto 7.2 % (2-4); Hemoglobin 13.4 g/dL (13.5-17.5); Lymphocytes Absolute Auto 1400 /uL (1100-4500); Lymphocytes Percent Auto 22.2 % (25-40); Mean Corpuscular HGB Conc 34.4 % (30-36); Mean Corpuscular Hemoglobin 30.8 PG (26-34); Mean Corpuscular Volume 89.4 fL (80-100); Monocytes Absolute Auto 800 /uL (0-900); Monocytes Percent Auto 12.2 % (3-14); Neutrophils Absolute Auto 3600 /uL (1500-7000); Neutrophils Percent Auto 57.6 % (50-75); Platelet Count 241 X10^3/uL (150-400); Red Blood Cell Count 4.36 X10^6/uL (4.5-5.9); Red Cell Distribution Width 14.2 % (11.6-14.8); White Blood Cell Count 6.2 X10^3/uL (4.5-11.0)
[2024-01-26 11:30] LABS: Alanine Aminotransferase 31 IU/L (<50); Albumin 4.5 g/dL (3.5-5.0); Alkaline Phosphatase 66 U/L (38-126); Aspartate Aminotransferase 38 IU/L (17-59); Bilirubin Total 1.3 mg/dL (0.2-1.3); Blood Urea Nitrogen 20 mg/dL (9-20); Calcium 8.9 mg/dL (8.4-10.2); Carbon Dioxide 32 mmol/L (22-32); Chloride 103 mmol/L (98-107); Cholesterol 125 mg/dL (140-199); Estimated Glomerular Filt Rate 57 mL/min (>60); Globulin 2.2 g/dL (1.7-4.1); Glucose 115 mg/dL (80-110); HDL Cholesterol 44 mg/dL (40-60); HEMOLYSIS < 15 (0-50); LDL Cholesterol Calculated 67 mg/dL (<100); Potassium 4.9 mmol/L (3.4-5.1); Sodium 140 mmol/L (137-145); Total Protein 6.7 g/dL (6.3-8.2); Triglycerides 69 mg/dL (35-150)
== END ==
PROVIDERS: Family Provider Family Medicine; PCP Family Medicine; Referring Provider Internal Medicine Cardiovascular Disease; Visit Provider Internal Medicine Cardiovascular Disease
DX: I42.9 Cardiomyopathy, unspecified (principal); E78.5 Hyperlipidemia, unspecified
CPT/HCPCS: 36415; 80053; 80061; 85025

== ENCOUNTER → 2024-05-14 07:02 | Outpatient (CLI) | payer MEDICARE, SELFPAY ==
[2024-05-14 08:09] LABS: Add Manual Diff / Slide Review NO; Basophils Absolute Auto 100 /uL (0-100); Basophils Percent Auto 1.2 % (0-2); Eosinophils Absolute Auto 500 /uL (0-450); Eosinophils Percent Auto 7.5 % (2-4); Hematocrit 39.6 % (41-53); Hemoglobin 13.6 g/dL (13.5-17.5); Lymphocytes Absolute Auto 1500 /uL (1100-4500); Lymphocytes Percent Auto 22.5 % (25-40); Mean Corpuscular HGB Conc 34.4 % (30-36); Mean Corpuscular Hemoglobin 31.3 PG (26-34); Mean Corpuscular Volume 91.1 fL (80-100); Monocytes Absolute Auto 900 /uL (0-900); Monocytes Percent Auto 12.7 % (3-14); Neutrophils Absolute Auto 3800 /uL (1500-7000); Neutrophils Percent Auto 56.1 % (50-75); Platelet Count 265 X10^3/uL (150-400); Red Blood Cell Count 4.35 X10^6/uL (4.5-5.9); Red Cell Distribution Width 13.8 % (11.6-14.8); White Blood Cell Count 6.9 X10^3/uL (4.5-11.0)
[2024-05-14 08:23] LABS: BUN Creatinine Ratio 18.3 (6-22); Blood Urea Nitrogen 20 mg/dL (9-20); Calcium 9.2 mg/dL (8.4-10.2); Carbon Dioxide 26 mmol/L (22-32); Chloride 104 mmol/L (98-107); Estimated Glomerular Filt Rate > 60 mL/min (>60); Glucose 107 mg/dL (80-110); HEMOLYSIS < 15 (0-50); Potassium 3.8 mmol/L (3.4-5.1); Sodium 138 mmol/L (137-145)
== END ==
PROVIDERS: Family Provider Family Medicine; PCP Family Medicine; Referring Provider Nurse Practitioner Family; Visit Provider Nurse Practitioner Family
DX: I48.4 Atypical atrial flutter (principal); I48.0 Paroxysmal atrial fibrillation
CPT/HCPCS: 36415; 80048; 85025

== ENCOUNTER → 2024-06-16 07:32 | Outpatient (CLI) | payer MEDICARE, SELFPAY ==
[2024-06-16 09:13] LABS: BUN Creatinine Ratio 20.9 (6-22); Blood Urea Nitrogen 24 mg/dL (9-20); Calcium 8.9 mg/dL (8.4-10.2); Carbon Dioxide 28 mmol/L (22-32); Chloride 104 mmol/L (98-107); Estimated Glomerular Filt Rate > 60 mL/min (>60); Glucose 117 mg/dL (80-110); HEMOLYSIS < 15 (0-50); Sodium 139 mmol/L (137-145)
== END ==
PROVIDERS: Family Provider Family Medicine; PCP Family Medicine; Referring Provider Internal Medicine Cardiovascular Disease; Visit Provider Internal Medicine Cardiovascular Disease
DX: I48.0 Paroxysmal atrial fibrillation (principal)
CPT/HCPCS: 36415; 80048

== ENCOUNTER → 2024-10-04 08:56 | Outpatient (CLI) | payer MEDICARE, SELFPAY ==
[2024-10-04 09:58] LABS: Add Manual Diff / Slide Review NO; Basophils Absolute Auto 100 /uL (0-100); Basophils Percent Auto 1.1 % (0-2); Eosinophils Absolute Auto 600 /uL (0-450); Eosinophils Percent Auto 8.2 % (2-4); Lymphocytes Absolute Auto 1300 /uL (1100-4500); Lymphocytes Percent Auto 18.3 % (25-40); Mean Corpuscular Hemoglobin 30.8 PG (26-34); Mean Corpuscular Volume 90.5 fL (80-100); Monocytes Absolute Auto 500 /uL (0-900); Monocytes Percent Auto 6.4 % (3-14); Neutrophils Absolute Auto 4800 /uL (1500-7000); Platelet Count 269 X10^3/uL (150-400); Red Blood Cell Count 4.53 X10^6/uL (4.5-5.9); Red Cell Distribution Width 13.7 % (11.6-14.8); White Blood Cell Count 7.3 X10^3/uL (4.5-11.0)
[2024-10-04 10:48] LABS: BUN Creatinine Ratio 19.3 (6-22); Blood Urea Nitrogen 22 mg/dL (9-20); Calcium 9.1 mg/dL (8.4-10.2); Carbon Dioxide 23 mmol/L (22-32); Chloride 101 mmol/L (98-107); Estimated Glomerular Filt Rate > 60 mL/min (>60); Glucose 200 mg/dL (80-110); HEMOLYSIS < 15 (0-50); Potassium 3.8 mmol/L (3.4-5.1); Sodium 138 mmol/L (137-145)
== END ==
PROVIDERS: Family Provider Family Medicine; PCP Family Medicine; Referring Provider Internal Medicine Cardiovascular Disease; Visit Provider Internal Medicine Cardiovascular Disease
DX: I48.0 Paroxysmal atrial fibrillation (principal)
CPT/HCPCS: 36415; 80048; 85025

== ENCOUNTER → 2024-12-07 08:35 | Outpatient (CLI) | payer MEDICARE, SELFPAY ==
[2024-12-07 09:00] LABS: Add Manual Diff / Slide Review NO; Basophils Absolute Auto 100 /uL (0-100); Basophils Percent Auto 0.6 % (0-2); Eosinophils Absolute Auto 400 /uL (0-450); Eosinophils Percent Auto 4.4 % (2-4); Hematocrit 39.2 % (41-53); Hemoglobin 13.6 g/dL (13.5-17.5); Lymphocytes Absolute Auto 1000 /uL (1100-4500); Lymphocytes Percent Auto 11.1 % (25-40); Mean Corpuscular HGB Conc 34.6 % (30-36); Mean Corpuscular Hemoglobin 31.3 PG (26-34); Mean Corpuscular Volume 90.4 fL (80-100); Monocytes Absolute Auto 600 /uL (0-900); Monocytes Percent Auto 6.3 % (3-14); Neutrophils Absolute Auto 7100 /uL (1500-7000); Neutrophils Percent Auto 77.6 % (50-75); Platelet Count 241 X10^3/uL (150-400); Red Blood Cell Count 4.33 X10^6/uL (4.5-5.9); Red Cell Distribution Width 14.3 % (11.6-14.8); White Blood Cell Count 9.2 X10^3/uL (4.5-11.0)
[2024-12-07 09:29] LABS: BUN Creatinine Ratio 16.4 (6-22); Blood Urea Nitrogen 21 mg/dL (9-20); Calcium 9.2 mg/dL (8.4-10.2); Carbon Dioxide 29 mmol/L (22-32); Chloride 99 mmol/L (98-107); Estimated Glomerular Filt Rate 55 mL/min (>60); Glucose 163 mg/dL (80-110); HEMOLYSIS 29 (0-50); Potassium 4.4 mmol/L (3.4-5.1); Sodium 137 mmol/L (137-145)
== END ==
PROVIDERS: Family Provider Family Medicine; PCP Family Medicine; Referring Provider Nurse Practitioner Family; Visit Provider Nurse Practitioner Family
DX: I48.0 Paroxysmal atrial fibrillation (principal)
CPT/HCPCS: 36415; 80048; 85025

== ENCOUNTER → 2024-12-29 16:05 | Outpatient (CLI) | payer MEDICARE, SELFPAY ==
[2024-12-29 17:23] LABS: Alanine Aminotransferase 23 IU/L (<50); Albumin 4.6 g/dL (3.5-5.0); Alkaline Phosphatase 79 U/L (38-126); Aspartate Aminotransferase 31 IU/L (17-59); BUN Creatinine Ratio 15.2 (6-22); Bilirubin Total 1.2 mg/dL (0.2-1.3); Blood Urea Nitrogen 20 mg/dL (9-20); Calcium 9.2 mg/dL (8.4-10.2); Carbon Dioxide 29 mmol/L (22-32); Chloride 101 mmol/L (98-107); Estimated Glomerular Filt Rate 53 mL/min (>60); Globulin 2.3 g/dL (1.7-4.1); Glucose 112 mg/dL (70-99); HEMOLYSIS < 15 (0-50); Potassium 3.7 mmol/L (3.4-5.1); Sodium 139 mmol/L (137-145); Total Protein 6.9 g/dL (6.3-8.2)
[2024-12-29 17:36] LABS: Free T4, Direct Thyroxine 1.01 ng/dL (0.78-2.19)
[2024-12-29 17:50] LABS: Thyroid Stimulating Hormone 5.78 uIU/mL (0.47-4.68)
== END ==
PROVIDERS: Family Provider Family Medicine; PCP Family Medicine; Referring Provider Internal Medicine Cardiovascular Disease; Visit Provider Internal Medicine Cardiovascular Disease
DX: I48.0 Paroxysmal atrial fibrillation (principal)
CPT/HCPCS: 36415; 80053; 84439; 84443

== ENCOUNTER → 2025-01-14 07:11 | Outpatient (CLI) | payer MEDICARE, SELFPAY ==
[2025-01-14 08:00] LABS: Add Manual Diff / Slide Review NO; Basophils Absolute Auto 0 /uL (0-100); Basophils Percent Auto 0.7 % (0-2); Eosinophils Absolute Auto 800 /uL (0-450); Eosinophils Percent Auto 10.6 % (2-4); Hematocrit 40.1 % (41-53); Hemoglobin 13.8 g/dL (13.5-17.5); Lymphocytes Absolute Auto 1500 /uL (1100-4500); Lymphocytes Percent Auto 20.6 % (25-40); Mean Corpuscular HGB Conc 34.5 % (30-36); Mean Corpuscular Hemoglobin 31.2 PG (26-34); Mean Corpuscular Volume 90.3 fL (80-100); Monocytes Absolute Auto 700 /uL (0-900); Monocytes Percent Auto 9.8 % (3-14); Neutrophils Absolute Auto 4100 /uL (1500-7000); Neutrophils Percent Auto 58.3 % (50-75); Platelet Count 256 X10^3/uL (150-400); Red Blood Cell Count 4.43 X10^6/uL (4.5-5.9); Red Cell Distribution Width 14.3 % (11.6-14.8); White Blood Cell Count 7.1 X10^3/uL (4.5-11.0)
[2025-01-14 08:44] LABS: BUN Creatinine Ratio 15.2 (6-22); Blood Urea Nitrogen 23 mg/dL (9-20); Calcium 9.1 mg/dL (8.4-10.2); Carbon Dioxide 29 mmol/L (22-32); Chloride 99 mmol/L (98-107); Estimated Glomerular Filt Rate 45 mL/min (>60); Glucose 116 mg/dL (70-99); HEMOLYSIS < 15 (0-50); Potassium 3.9 mmol/L (3.4-5.1); Sodium 138 mmol/L (137-145)
[2025-01-14 08:54] LABS: Hemoglobin A1C% w Est Avg Glu 5.7 % (4.0-6.0)
== END ==
PROVIDERS: Family Provider Family Medicine; PCP Family Medicine; Referring Provider Nurse Practitioner Family; Visit Provider Nurse Practitioner Family
DX: I48.0 Paroxysmal atrial fibrillation (principal); R74.8 Abnormal levels of other serum enzymes
CPT/HCPCS: 36415; 80048; 83036; 85025

== ENCOUNTER → 2025-02-07 13:43 | Outpatient (CLI) | payer MEDICARE, SELFPAY ==
--- NOTE | 2025-02-07 13:45 | DI.US.S_ITS ---
PROCEDURE: US RENAL COMPLETE INDICATIONS: decreased GFR TECHNIQUE: Real-time scanning was performed of the kidneys and bladder, with image documentation. COMPARISON: None. FINDINGS: Kidneys: Kidneys are normal in size. Right kidney measures 11.1 cm long; left kidney measures 11.2 cm long. Right renal cortical thickness is 1.6 cm; left renal cortical thickness is 1.2 cm. Renal cortical echotexture is normal. Questionable, linear shadowing nonobstructing stone in the left upper pole calyx measuring 1.3 cm in diameter. No other calculi evident. No hydronephrosis. No suspicious solid mass lesions. Bladder: Pre-void bladder volume is 307 mL. Post-void residual is 131 mL. Pre-void images demonstrate no intraluminal masses or stones. On pre-void images, neither ureteral jets are noted with color Doppler interrogation. (Of note, ureteral jets may not be detectable in up to 25% of cases due to insufficient differences in specific gravity between ureteral and bladder urine). Miscellaneous: No free pelvic fluid. IMPRESSION: Normal renal morphology without sonographic evidence of obstructive uropathy. Questionable nonobstructing left upper pole intrarenal calculus. Moderate to large postvoid residual in the urinary bladder. Consider bladder outlet obstruction. Dictated by: Lizeth Escamilla M.D. on 02/08/2025 at 12:22 Approved by: Lizeth Escamilla M.D. on 02/08/2025 at 12:24
== END ==
LOC: US 13:44
PROVIDERS: Family Provider Family Medicine; PCP Family Medicine; Referring Provider Family Medicine; Visit Provider Family Medicine
DX: R94.4 Abnormal results of kidney function studies (principal)
CPT/HCPCS: 76770

== ENCOUNTER → 2025-02-21 12:48 | Outpatient (CLI) | payer MEDICARE, SELFPAY ==
[2025-02-21 15:01] LABS: Add Manual Diff / Slide Review NO; Hematocrit 41.6 % (41-53); Hemoglobin 14.5 g/dL (13.5-17.5); Lymphocytes Absolute Auto 1900 /uL (1100-4500); Mean Corpuscular HGB Conc 34.9 % (30-36); Mean Corpuscular Hemoglobin 31.5 PG (26-34); Mean Corpuscular Volume 90.3 fL (80-100); Platelet Count 249 X10^3/uL (150-400)
== END ==
PROVIDERS: Family Provider Family Medicine; PCP Family Medicine; Referring Provider Internal Medicine Cardiovascular Disease; Visit Provider Internal Medicine Cardiovascular Disease
DX: I48.0 Paroxysmal atrial fibrillation (principal)
CPT/HCPCS: 36415; 85025

== ENCOUNTER → 2025-05-30 12:41 | Outpatient (CLI) | payer MEDICARE, SELFPAY ==
--- NOTE | 2025-05-30 12:43 | DI.RAD.S_ITS ---
PROCEDURE: XR CHEST 2V INDICATIONS: sob TECHNIQUE: 2 views of the chest were acquired. COMPARISON: [facility], CR, XR CHEST 1V, 07/22/2023, 15:18. [facility], CR, XR CHEST 1V, 11/25/2019, 8:41. FINDINGS: Surgical changes and devices: Triple lead pacemaker device with tips overlying the right atrial appendage, coronary sinus and right ventricle. Lungs and pleura: Moderate lung volumes. Bibasilar atelectasis. No consolidation. No pleural effusion or pneumothorax. Mediastinum: Mediastinal contours are normal. Heart size is normal. Bones and chest wall: No suspicious bony abnormalities. Soft tissues appear unremarkable. IMPRESSION: Bibasilar atelectasis without consolidative pneumonia. Dictated by: Quang Patricia M.D. on 05/30/2025 at 15:16 Approved by: Quang Patricia M.D. on 05/30/2025 at 15:17
[2025-05-30 14:51] LABS: Add Manual Diff / Slide Review NO; Hematocrit 37.9 % (41-53); Hemoglobin 13.0 g/dL (13.5-17.5); Lymphocytes Absolute Auto 1300 /uL (1100-4500); Mean Corpuscular HGB Conc 34.3 % (30-36); Mean Corpuscular Hemoglobin 31.8 PG (26-34); Mean Corpuscular Volume 92.7 fL (80-100); Platelet Count 230 X10^3/uL (150-400)
[2025-05-30 15:18] LABS: Alanine Aminotransferase 19 IU/L (<50); Albumin 4.9 g/dL (3.5-5.0); Albumin Globulin Ratio 2.0 (1.0-2.8); Alkaline Phosphatase 83 U/L (38-126); Blood Urea Nitrogen 25 mg/dL (9-20); Calcium 9.1 mg/dL (8.4-10.2); Carbon Dioxide 30 mmol/L (22-32); Chloride 100 mmol/L (98-107); Estimated Glomerular Filt Rate 38 mL/min (>60); Globulin 2.5 g/dL (1.7-4.1); Glucose 89 mg/dL (70-99); HEMOLYSIS < 15 (0-50); Potassium 4.4 mmol/L (3.4-5.1); Sodium 140 mmol/L (137-145); Total Protein 7.4 g/dL (6.3-8.2)
[2025-05-31 17:13] LABS: HEMOLYSIS 20 (0-50); Iron 112 ug/dL (49-181)
[2025-05-31 17:27] LABS: Percent Iron Saturation 32 % (20-50); Total Iron Binding Capacity 352 ug/dL (261-462); Transferrin 276 mg/dL (206-381)
[2025-05-31 18:07] LABS: Ferritin 102 ng/mL (18-464)
== END ==
PROVIDERS: PCP Family Medicine; Referring Provider Family Medicine; Visit Provider Family Medicine
DX: J98.11 Atelectasis (principal); R06.02 Shortness of breath; Z95.0 Presence of cardiac pacemaker
CPT/HCPCS: 36415; 71046; 80053; 82728; 83540; 83550; 85025

== ENCOUNTER → 2025-06-17 07:04 | Outpatient (CLI) | payer MEDICARE, SELFPAY ==
[2025-06-17 07:37] LABS: Add Manual Diff / Slide Review NO; Hematocrit 35.0 % (41-53); Hemoglobin 12.2 g/dL (13.5-17.5); Lymphocytes Absolute Auto 1500 /uL (1100-4500); Mean Corpuscular HGB Conc 34.9 % (30-36); Mean Corpuscular Hemoglobin 32.2 PG (26-34); Mean Corpuscular Volume 92.5 fL (80-100); Platelet Count 207 X10^3/uL (150-400)
[2025-06-17 07:55] LABS: Alanine Aminotransferase 24 IU/L (<50); Albumin 4.2 g/dL (3.5-5.0); Albumin Globulin Ratio 1.8 (1.0-2.8); Alkaline Phosphatase 69 U/L (38-126); Blood Urea Nitrogen 22 mg/dL (9-20); Calcium 8.7 mg/dL (8.4-10.2); Carbon Dioxide 27 mmol/L (22-32); Chloride 103 mmol/L (98-107); Estimated Glomerular Filt Rate 46 mL/min (>60); Globulin 2.3 g/dL (1.7-4.1); Glucose 133 mg/dL (70-99); HEMOLYSIS 27 (0-50); Potassium 4.3 mmol/L (3.4-5.1); Sodium 136 mmol/L (137-145); Total Protein 6.5 g/dL (6.3-8.2)
[2025-06-17 08:12] LABS: Free T4, Direct Thyroxine 0.42 ng/dL (0.78-2.19)
[2025-06-17 08:26] LABS: Thyroid Stimulating Hormone 65.8 uIU/mL (0.47-4.68)
== END ==
PROVIDERS: Internal Medicine Cardiovascular Disease; PCP Family Medicine; Referring Provider Internal Medicine Cardiovascular Disease; Visit Provider Internal Medicine Cardiovascular Disease
DX: I48.0 Paroxysmal atrial fibrillation (principal); R06.02 Shortness of breath; Z79.899 Other long term (current) drug therapy; D64.9 Anemia, unspecified
CPT/HCPCS: 36415; 80053; 84439; 84443; 85025

== ENCOUNTER → 2025-07-04 13:23 | Outpatient (CLI) | payer MEDICARE, SELFPAY | LOC: RESP 13:24 | PROVIDERS: PCP Family Medicine; Referring Provider Internal Medicine Cardiovascular Disease; Visit Provider Internal Medicine Cardiovascular Disease | DX: R06.02 Shortness of breath (principal); Z79.899 Other long term (current) drug therapy; Z87.891 Personal history of nicotine dependence; J98.8 Other specified respiratory disorders | CPT/HCPCS: 94060; 94726; 94729 ==

== ENCOUNTER → 2025-07-05 13:26 | Outpatient (CLI) | payer MEDICARE, SELFPAY ==
--- NOTE | 2025-07-05 13:27 | DI.ECHO.S_ITS ---
[facility] [place] [facility] : : [address] : [address] : : [id number] : : Phone: [phone] Echocardiogram Report + + :Name: VIVIAN MOSQUEDA Study Date: 07/05/2025 Height: 73 in : :Hospital ReadingLocation: Weight: 238 lb : : Gender: Male BSA: 2.3 m2 : :: 1940 Age: 84 yrs BP: 120/69 mmHg: :Reason For Study: Shortness of breath : :Ordering Physician: SHANTA, : :AMY Performed By: Ricky Seaman : :Referring: AMY WOMACK : + + Interpretation Summary Left ventricular wall thickness is mildly increased. The ejection fraction is estimated to be 55-60%. Diastolic function could not be accurately assessed due to paced rhythm. The right ventricle is mildly dilated. The right ventricular systolic function is normal. There is severe biatrial enlargement. There is moderate mitral regurgitation. There is mild aortic regurgitation. There is moderate tricuspid regurgitation. The right ventricular systolic pressure is estimated to be at least 65 mmHg based on an estimated right atrial pressure of 15 mm Hg. Compared to the prior study 07/24/2023, the tricuspid regurgitation is increased. Procedure: A two-dimensional transthoracic echocardiogram with color flow and Doppler was performed. The study quality was technically adequate. Comparison is made with the echocardiogram of 07/24/2023. The heart rate ranged between 60-68 bpm during the study. Left Ventricle: The left ventricle is normal in size. Left ventricular wall thickness is mildly increased. The ejection fraction is estimated to be 55- 60%. There is a mild dyssynchronous contraction pattern due to the paced rhythm. Diastolic function could not be accurately assessed due to paced rhythm. Right Ventricle: The right ventricle is mildly dilated. There is a pacemaker lead in the right ventricle. The right ventricular systolic function is normal. Atria: There is severe biatrial enlargement. There is a catheter/pacemaker lead seen in the right atrium. There is no Doppler evidence for an interatrial shunt. Mitral Valve: There is mild mitral annular calcification. Mild thickening of the mitral valve leaflet with malcoaptation of the mitral valve leaflets. There is no mitral valve stenosis. There is moderate mitral regurgitation. Aortic Valve: The aortic valve is trileaflet. There is mild aortic valve sclerosis. There is no aortic valve stenosis. There is mild aortic regurgitation. Tricuspid Valve: The tricuspid valve is not well visualized, but is grossly normal. There is moderate tricuspid regurgitation. The right ventricular systolic pressure is estimated to be at least 65 mmHg based on an estimated right atrial pressure of 15 mm Hg. Pulmonic Valve: The pulmonic valve is not well seen, but is grossly normal. There is mild pulmonic regurgitation. Great Vessels: The aortic root is normal size. There is aortic root sclerosis/calcification. The ascending aorta is normal in size. The pulmonary artery is normal size. The IVC is dilated (diameter is greater than 2.1 cm) and it collapses less than 50% with a sniff. This suggests a high right atrial pressure of 15 mm Hg. Pericardium/ Pleura There is no pericardial effusion. MMode/2D Measurements & Calculations LVIDd: 4.6 cm LVOT diam: 2.2 cm LVIDs: 2.5 cm Ao root diam: 3.4 cm FS: 45.0 % asc Aorta Diam: 3.5 cm IVSd: 1.2 cm LVPWd: 1.2 cm LV green. diameter/BSA (cm/m^2): 2.0 LV sys. diameter/BSA (cm/m^2): 1.1 LA A2 area: 29.9 cm2 RA long axis: 7.3 cm LA A4 area: 33.9 cm2 RA area: 23.7 cm2 LA length (vol): 7.1 cm RA vol: 65.6 ml LA vol: 121.5 ml RA : 28.3 ml/m2 LA vol index: 52.4 ml/m2 IVC diam: 2.5 cm RVD1 (basal): 4.2 cm RVD2 (mid): 3.2 cm TAPSE: 1.8 cm Doppler Measurements & Calculations Ao V2 max: 152.1 cm/sec LVOT Max Lexa: 78.9 cm/sec Ao V2 mean: 102.4 cm/sec LV V1 max P.5 mmHg Ao max P.3 mmHg LV V1 VTI: 16.1 cm Ao mean P.8 mmHg ALINA(I,D): 2.1 cm2 Ao V2 VTI: 29.2 cm ALINA(V,D): 2.0 cm2 sev ratio: 0.55 ALINA indexed to BSA (cm^2/m^2): 0.92 AI P1/2t: 510.5 msec AI dec slope: 211.0 cm/sec2 MV E max lexa: 81.0 cm/sec TR max lexa: 367.4 cm/sec MV A max lexa: 33.4 cm/sec TR max P.1 mmHg MV E/A: 2.4 PA V2 max: 63.9 cm/sec Med Peak E' Lexa: 6.8 cm/sec PA V2 mean: 43.7 cm/sec E/E' med: 12.0 PA mean P.87 mmHg Lat Peak E' Lexa: 9.4 cm/sec PA pr(Accel): 46.9 mmHg E/E' lat: 8.6 E/e' average: 10.3 MV dec time: 0.17 sec MR ERO: 0.13 cm2 MR PISA: 1.6 cm2 SV(LVOT): 62.6 ml MR flow rate: 59.0 cm3/sec MR PISA radius: 0.50 cm Qp/Qs (V,Ao): 1.0/5.5 Qp/Qs (V,LVOT): 1.0/1.2 Reading Physician:03:18 PM
== END ==
PROVIDERS: PCP Family Medicine; Referring Provider Internal Medicine Cardiovascular Disease; Visit Provider Internal Medicine Cardiovascular Disease
DX: I08.3 Combined rheumatic disorders of mitral, aortic and tricuspid valves (principal); R06.02 Shortness of breath; I70.0 Atherosclerosis of aorta
CPT/HCPCS: 93306

== ENCOUNTER → 2025-07-18 08:06 | Outpatient (CLI) | payer MEDICARE, SELFPAY ==
[2025-07-18 09:04] LABS: Blood Urea Nitrogen 13 mg/dL (9-20); Calcium 8.8 mg/dL (8.4-10.2); Carbon Dioxide 24 mmol/L (22-32); Chloride 106 mmol/L (98-107); Estimated Glomerular Filt Rate 50 mL/min (>60); Glucose 93 mg/dL (70-99); HEMOLYSIS < 15 (0-50); Potassium 4.4 mmol/L (3.4-5.1); Sodium 139 mmol/L (137-145)
[2025-07-18 09:33] LABS: TSH w/ Reflex to FT4 66.00 uIU/mL (0.47-4.68)
[2025-07-18 09:57] LABS: Free T4, Direct Thyroxine 0.39 ng/dL (0.78-2.19)
== END ==
PROVIDERS: PCP Family Medicine; Referring Provider Family Medicine; Visit Provider Internal Medicine Nephrology
DX: E03.8 Other specified hypothyroidism (principal); D63.8 Anemia in other chronic diseases classified elsewhere; R79.89 Other specified abnormal findings of blood chemistry; R06.02 Shortness of breath
CPT/HCPCS: 36415; 80048; 84439; 84443

== ENCOUNTER → 2025-08-14 12:41 | Outpatient (CLI) | payer MEDICARE, SELFPAY ==
--- NOTE | 2025-08-14 12:45 | DI.RAD.S_ITS ---
PROCEDURE: XR ANKLE LT MIN 3V INDICATIONS: Evaluate for fracture and osteoarthritis TECHNIQUE: 3 views of the ankle were acquired. COMPARISON: None. FINDINGS: Bones: No acute fractures or dislocations. Ankle mortise is normally aligned. No suspicious bony lesions. Dorsal calcaneal enthesophyte. Well corticated ossification along the inferior margin of the distal fibula. Soft tissues: Small tibiotalar joint effusion. Achilles tendon appears normal. IMPRESSION: No acute bony abnormality or significant effusion. Remote distal fibula fracture. Dictated by: Derrick Raymond M.D. on 08/14/2025 at 12:05 Approved by: Derrick Raymond M.D. on 08/14/2025 at 12:06
== END ==
LOC: RAD 12:44
PROVIDERS: PCP Family Medicine; Referring Provider Chiropractor; Visit Provider Chiropractor
DX: S93.402A Sprain of unspecified ligament of left ankle, initial encounter (principal); S82.832S Other fracture of upper and lower end of left fibula, sequela
CPT/HCPCS: 73610

== ENCOUNTER → 2025-08-16 14:54 | Outpatient (CLI) | payer MEDICARE, SELFPAY ==
[2025-08-16 17:41] LABS: Blood Urea Nitrogen 17 mg/dL (9-20); Calcium 9.2 mg/dL (8.4-10.2); Carbon Dioxide 28 mmol/L (22-32); Chloride 106 mmol/L (98-107); Estimated Glomerular Filt Rate 47 mL/min (>60); Glucose 86 mg/dL (70-99); HEMOLYSIS < 15 (0-50); Potassium 4.2 mmol/L (3.4-5.1); Sodium 143 mmol/L (137-145)
[2025-08-18 13:09] LABS: Immunoglobulin G,Serum 781 mg/dL (603-1613)
== END ==
PROVIDERS: PCP Family Medicine; Referring Provider Internal Medicine Cardiovascular Disease; Visit Provider Internal Medicine Cardiovascular Disease
DX: I50.30 Unspecified diastolic (congestive) heart failure (principal)
CPT/HCPCS: 36415; 80048; 82784; 84155; 86334

== ENCOUNTER → 2025-08-17 11:49 | Outpatient (CLI) | payer MEDICARE, SELFPAY | PROVIDERS: PCP Family Medicine; Referring Provider Internal Medicine Cardiovascular Disease; Visit Provider Internal Medicine Cardiovascular Disease | DX: I50.30 Unspecified diastolic (congestive) heart failure (principal) | CPT/HCPCS: 86335 ==